=== PATIENT | female | born 1950 | race Caucasian/White ===

== ENCOUNTER → 2018-01-05 07:05 | Outpatient (CLI) | payer MEDICARE, OTHER, SELFPAY ==
[2018-01-05 08:13] LABS: Aspartate Amino Transferase 27 U/L (15-37); HDL Cholesterol 58 mg/dL (29-89)
[2018-01-05 08:28] LABS: Albumin Level 3.8 gm/dL (3.4-5.0); Chol/HDL Ratio 3.4 (1-3.5); Cholesterol 197 mg/dL (140-200); Free T4 (Free Thyroxine) 1.07 ng/dl (0.76-1.46); Glucose 107 mg/dL (74-106); LDL Cholesterol 127 mg/dL (0-130); Triglycerides 62 mg/dL (30-200); VLDL Cholesterol 12 mg/dL (0-40)
[2018-01-05 08:50] LABS: Alanine Aminotransferase 41 U/L (12-78); Albumin/Globulin Ratio 1.3 (1.1-1.8); Alkaline Phosphatase 92 U/L (46-116); Anion Gap 13.4 mEq/L (5-15); Bilirubin,Total 0.2 mg/dL (0.2-1.0); Blood Urea Nitrogen 19 mg/dL (7-18); Calcium 9.8 mg/dL (8.5-10.1); Carbon Dioxide 26 mmol/L (21.0-32.0); Chloride 104 mmol/L (98-107); Creatinine,Serum 0.74 mg/dL (0.55-1.02); Estimated Glomerular Filt Rate 78 ml/min (>60); GFR (African American) 94 ML/MIN (>60); Globulin 2.9 gm/dl (1.3-3.2); Potassium 4.4 mmoL/L (3.5-5.1); Sodium 139 mmol/L (136-145); Thyroid Stimulating Hormone 0.76 uIU/ml (0.358-3.740); Total Protein,Serum 6.7 gm/dL (6.4-8.2)
== END ==
PROVIDERS: Visit Provider Family Medicine
DX: E03.9 Hypothyroidism, unspecified (principal); E78.00 Pure hypercholesterolemia, unspecified
CPT/HCPCS: 36415; 80053; 80061; 84439; 84443

== ENCOUNTER → 2019-08-04 12:35 | Outpatient (CLI) | payer MEDICARE, OTHER, SELFPAY ==
--- NOTE | 2019-08-04 12:41 | MR_ITS ---
PROCEDURE: MR KNEE LT WO CON CLINICAL INDICATION: LEFT KNEE PAIN, POSITIVE AMY SIGN OF LEFT KNEE Medial knee pain COMPARISON: No exams were available for comparison TECHNIQUE: Routine multiplanar multi echo sequences are performed without gadolinium enhancement. Some the FINDINGS: The cruciate ligaments appear intact. The fibers of the ACL are fairly sparse and could be due to an old injury. The lateral collateral ligament complex is unremarkable. There is some mild edema along both medial and lateral aspect of the medial collateral ligament suggesting a sprain of MCL. There is a horizontal tear of the posterior horn of the medial meniscus. The lateral meniscus has an unremarkable appearance. There is a small area of increased T2 signal along the posterior surface of the patella and along the lateral surface of the patella with thinning of the patellar cartilage consistent with chondromalacia patella. No significant effusion. No bone bruise or fracture. There is a small subarticular cyst along the proximal tibia posteriorly. A small cystic areas present between the proximal. This measures 6 approximately 1 cm. IMPRESSION: 1. Nondisplaced horizontal tear posterior horn medial meniscus. 2. 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 Mild amount of edema along the medial and lateral aspect of the medial collateral ligament suggesting sprain. Dictated by: Delon Aguilar MD 08/05/2019 09:59 Electronically signed by Delon Aguilar MD in [place] 08/05/2019 09:59
== END ==
PROVIDERS: PCP Family Medicine; Visit Provider Family Medicine
DX: M25.562 Pain in left knee (principal); S83.207A Unspecified tear of unspecified meniscus, current injury, left knee, initial encounter
CPT/HCPCS: 73721

== ENCOUNTER → 2019-08-14 12:49 | Outpatient (CLI) | payer MEDICARE, OTHER, SELFPAY ==
--- NOTE | 2019-08-14 13:01 | XR_ITS ---
PROCEDURE: XR KNEE LT 4V CLINICAL INDICATION: left knee pain COMPARISON: No exams were available for comparison FINDINGS: No fracture or dislocation. No lytic or blastic change. There is normal mineralization. There are mild osteoarthritic changes the patellofemoral joint and medial compartment and minimal chondrocalcinosis medially. Other findings:None. IMPRESSION: Mild osteoarthritic change at the medial compartment and patellofemoral joint Dictated by: Delon Aguilar MD 08/14/2019 14:25 Electronically signed by Delon Aguilar MD in [place] 08/14/2019 14:25
== END ==
PROVIDERS: PCP Family Medicine; Visit Provider Orthopaedic Surgery
DX: M25.562 Pain in left knee (principal)
CPT/HCPCS: 73564

== ENCOUNTER → 2019-08-22 12:28 | Outpatient (CLI) | payer MEDICARE, OTHER, SELFPAY ==
[2019-08-22 13:02] LABS: Basophils % 0.4 % (0.1-2.0); Eosinophils # 0.1 K/mm3 (0.0-0.4); Eosinophils % 1.2 % (0.1-12.0); Hematocrit 40.2 % (37.0-47.0); Hemoglobin 13.5 g/dL (12.2-16.2); Lymphocytes # 1.6 K/mm3 (0.7-4.5); Lymphocytes % 19.3 % (10-50); Mean Corpuscular HGB Conc 33.5 g/dL (31.8-35.4); Mean Corpuscular Hemoglobin 31.4 pg (27.0-31.2); Mean Corpuscular Volume 93.7 fl (81-99); Mean Platelet Volume 7.6 fl (7.4-10.4); Monocytes # 0.4 K/mm3 (0.1-1.0); Monocytes % 4.3 % (1.7-9.3); Neutrophils # 6.3 K/mm3 (1.8-7.8); Neutrophils % 74.8 % (37.0-80.0); Platelet Count 328 K/mm3 (142-424); Red Blood Count 4.29 M/mm3 (4.20-5.40); Red Cell Distribution Width 13.1 % (11.5-17.5); White Blood Count 8.4 K/mm3 (4.8-10.8)
[2019-08-22 13:49] LABS: Alanine Aminotransferase 49 U/L (12-78); Albumin Level 4.1 gm/dL (3.4-5.0); Albumin/Globulin Ratio 1.6 (1.1-1.8); Alkaline Phosphatase 94 U/L (46-116); Aspartate Amino Transferase 33 U/L (15-37); Bilirubin,Total 0.3 mg/dL (0.2-1.0); Blood Urea Nitrogen 20 mg/dL (7-18); Calcium 9.6 mg/dL (8.5-10.1); Carbon Dioxide 27 mmol/L (21.0-32.0); Chloride 104 mmol/L (98-107); Estimated Glomerular Filt Rate 71 ml/min (>60); GFR (African American) 86 ML/MIN (>60); Globulin 2.6 gm/dl (1.3-3.2); Glucose 106 mg/dL (74-106); Sodium 143 mmol/L (136-145); Total Protein,Serum 6.7 gm/dL (6.4-8.2)
== END ==
PROVIDERS: Visit Provider Orthopaedic Surgery
DX: Z01.818 Encounter for other preprocedural examination (principal); M17.12 Unilateral primary osteoarthritis, left knee
CPT/HCPCS: 36415; 80053; 85025

== ENCOUNTER → 2019-08-23 07:09 | Outpatient (CLI) | payer MEDICARE, OTHER, SELFPAY ==
--- NOTE | 2019-08-23 07:28 | XR_ITS ---
PROCEDURE: XR CHEST 2V CLINICAL HISTORY: COUGH COMPARISON: No exams were available for comparison FINDINGS: The cardiomediastinal silhouette and pulmonary vascularity are within normal limits. The lungs are clear without infiltrates, suspicious nodules, or pleural effusions. No acute bony abnormalities. IMPRESSION: No acute findings. Dictated by: Delon Aguilar MD 08/23/2019 08:03 Electronically signed by Delon Aguilar MD in [facility] 08/23/2019 08:03
--- NOTE | 2019-08-23 07:49 | ECG_ITS ---
APPROVED REPORT Exam: Resting ECG HR:56 bpm ECG Measurements Heart Rate 56 AXES TN 150 P 49 QRSd 80 QRS 29 QT 400 T 39 QTc 386 <Conclusion> Sinus bradycardia Low voltage QRS Late r wave progression Abnormal ECG Electronically signed by : Raúl Gastelum, 08/24/2019 15:31:50
== END ==
PROVIDERS: PCP Family Medicine; Visit Provider Orthopaedic Surgery
DX: Z01.818 Encounter for other preprocedural examination (principal); M17.12 Unilateral primary osteoarthritis, left knee
CPT/HCPCS: 71046; 93005

== ENCOUNTER → 2020-02-07 14:52 | Outpatient (CLI) | payer MEDICARE, OTHER, SELFPAY ==
[2020-02-07 15:24] LABS: Basophils % 0.5 % (0.1-2.0); Eosinophils # 0.1 K/mm3 (0.0-0.4); Eosinophils % 1.9 % (0.1-12.0); Hemoglobin 14.3 g/dL (12.2-16.2); Lymphocytes # 1.4 K/mm3 (0.7-4.5); Lymphocytes % 19.8 % (10-50); Mean Corpuscular HGB Conc 34.2 g/dL (31.8-35.4); Mean Corpuscular Hemoglobin 32.4 pg (27.0-31.2); Mean Corpuscular Volume 94.9 fl (81-99); Mean Platelet Volume 7.8 fl (7.4-10.4); Monocytes # 0.4 K/mm3 (0.1-1.0); Neutrophils # 5.1 K/mm3 (1.8-7.8); Neutrophils % 72.6 % (37.0-80.0); Platelet Count 320 K/mm3 (142-424); Red Blood Count 4.42 M/mm3 (4.20-5.40); Red Cell Distribution Width 13.1 % (11.5-17.5)
[2020-02-09 14:47] LABS: Covid-19 Nasal PCR Sendout Lex Not Detected
== END ==
PROVIDERS: PCP Family Medicine; Visit Provider Family Medicine
DX: Z03.818 Encounter for observation for suspected exposure to other biological agents ruled out (principal)
CPT/HCPCS: 36415; 85025; U0004

== ENCOUNTER → 2020-02-19 07:30 | Outpatient (CLI) | payer MEDICARE, OTHER, SELFPAY ==
[2020-02-19 08:39] LABS: Basophils % 0.4 % (0.1-2.0); Eosinophils # 0.1 K/mm3 (0.0-0.4); Eosinophils % 2.5 % (0.1-12.0); Hematocrit 41.5 % (37.0-47.0); Lymphocytes # 1.3 K/mm3 (0.7-4.5); Mean Corpuscular HGB Conc 33.8 g/dL (31.8-35.4); Mean Corpuscular Hemoglobin 31.6 pg (27.0-31.2); Mean Corpuscular Volume 93.5 fl (81-99); Mean Platelet Volume 7.3 fl (7.4-10.4); Monocytes # 0.3 K/mm3 (0.1-1.0); Neutrophils # 3.3 K/mm3 (1.8-7.8); Neutrophils % 66.1 % (37.0-80.0); Platelet Count 302 K/mm3 (142-424); Red Blood Count 4.44 M/mm3 (4.20-5.40); Red Cell Distribution Width 12.9 % (11.5-17.5)
[2020-02-19 09:43] LABS: Chloride 102 mmol/L (98-107); Potassium 4.7 mmoL/L (3.5-5.1); Sodium 139 mmol/L (136-145)
[2020-02-19 09:45] LABS: Alanine Aminotransferase 37 U/L (12-78); Aspartate Amino Transferase 37 U/L (14-36); Blood Urea Nitrogen 16 mg/dl (7-17); Estimated Glomerular Filt Rate 99 ml/min (>60); GFR (African American) 120 ML/MIN (>60)
[2020-02-19 09:46] LABS: Albumin Level 4.2 g/dl (3.5-5.0); Albumin/Globulin Ratio 1.8 (1.1-1.8); Alkaline Phosphatase 75 U/L (38-126); Anion Gap 12.7 mEq/L (5-15); Bilirubin,Total 0.3 mg/dl (0.2-1.3); Calcium 10.2 mg/dl (8.4-10.2); Carbon Dioxide 29 mmol/L (22.0-30.0); Chol/HDL Ratio 3.8 (1-3.5); Cholesterol 199 mg/dl (140-200); Globulin 2.3 g/dL (1.3-3.2); Glucose 98 mg/dl (74-100); HDL Cholesterol 52 mg/dl (40-60); Total Protein,Serum 6.5 g/dl (6.3-8.2); Triglycerides 129 mg/dl (30-150); VLDL Cholesterol 26 mg/dL (0-40)
[2020-02-19 09:52] LABS: C-Reactive Protein 0.8 mg/L (0-4)
[2020-02-19 09:53] LABS: Erythrocyte Sedimentation Rate 16 mm/hr (0-30)
[2020-02-19 10:03] LABS: Free T4 (Free Thyroxine) 0.92 ng/dl (0.78-2.19)
[2020-02-19 10:17] LABS: Thyroid Stimulating Hormone 2.23 uIU/mL (0.465-4.68)
--- NOTE | 2020-02-19 10:18 | MM_ITS ---
PROCEDURE: MM DIG SCREENING MAMM BI W/CAD Digital Breast Tomosynthesis Included CLINICAL INDICATION: SCREENING There is no personal or family history of breast cancer. The patient reports previous breast biopsy does but does not state which breast COMPARISON: MG DMDXUR DIG MAMM-DX UNI-RT from 04/10/2013 MG DMSB DIG MAMM-SCREEN AARON from 06/05/2014 MG DMSB DIG MAMM-SCREEN AARON from 07/22/2015 TECHNIQUE: Standard CC and MLO images and 3D Tomosynthesis was obtained. R2 CAD reviewed. FINDINGS: Prominent somewhat heterogenic fibroglandular densities are seen in the central portions of both breast and the findings of bilateral and symmetrical. There is a benign-appearing calcification left breast. There is no suspicious lesion and no suspicious microcalcifications. IMPRESSION: Stable dense and heterogenic breast parenchyma with no suspicious lesions seen BI-RAD Category: 2 Benign Finding(s) FOLLOW-UP: 1YR 1 Year Follow-up (A letter has been sent to the patient regarding results of the study.) Dictated Dr. Dameon Rivera MD 02/23/2020 10:29 Dr. Dameon Martinez MD in [place] 02/23/2020 10:29
[2020-02-20 09:17] LABS: RA Latex Turbid. <10.0 IU/mL (0.0-13.9); Vitamin B12 996 pg/mL (232-1245)
[2020-02-20 11:15] LABS: Antinuclear Antibodies, IFA Negative (.)
== END ==
PROVIDERS: PCP Family Medicine; Visit Provider Family Medicine
DX: Z12.31 Encounter for screening mammogram for malignant neoplasm of breast (principal); M25.562 Pain in left knee; E78.00 Pure hypercholesterolemia, unspecified; E03.9 Hypothyroidism, unspecified; M79.672 Pain in left foot; M79.671 Pain in right foot
CPT/HCPCS: 36415; 77063; 77067; 80053; 80061; 82607; 84439; 84443; 85025; 85651; 86038; 86140; 86431

== ENCOUNTER → 2020-12-24 08:50 | Outpatient (POV) | payer MEDICARE, OTHER, SELFPAY | PROVIDERS: Visit Provider Dermatology | DX: Z00.00 Encounter for general adult medical examination without abnormal findings (principal) ==

== ENCOUNTER 2021-02-04 09:00 | Outpatient (RCR) | payer MEDICARE, OTHER, SELFPAY ==
--- NOTE | 2020-12-17 10:16 | HMH.PTOPEV ---
PT Outpatient Evaluation Rehab PT Outpatient Evaluation Start: 12/17/20 09:05 Freq: Status: Active Protocol: Document 12/17/20 10:00 ABRIL (Rec: 12/17/20 10:16 ABRIL [id number]) Electronically Signed By Delvin Rey, PT 12/17/20 10:00 Outpatient Therapy Subjective History Subjective History Pt is 70 yowf who presents with c/o difficulty ambulating well due to residual L knee stiffness after partial medial meniscectomy in 08/2020. She reports the pandemic restrictions limited her ability to perform rehab after her surgery. She reports he knee feels fine, but is stiff, especially during gait. She reports only mild discomfort in the medial R knee, worse at night. Chief Complaint Pain,Stiff Symptom Type Ache Symptoms Relieved By Rest/Positioning Symptoms Aggravated By Walking Prior Functional Limitations None Current Functional Limitations Recreation Activity,Walking Symptom Description Intermittent,Activity Dependent Level of pain today (0-10) 0 Pain scale - at its worst (0-10) 2 Hip/Knee Eval Gait Observation General Gait Pattern Observation Antalgic Gait,Decrease Stride Lngth (L) Palpation Tenderness left Knee Palpation Finding Tenderness Knee Palpation Overall Comment L pes anserine Hip Palpation Findings Tenderness MMT Hip Flexion Strength Grade 4 Good Hip Abduction Strength Grade 4 Good Hip Adduction Strength Grade 4 Good Hip Extension Strength Grade 4 Good Knee Extension Strength Grade 5 Normal Knee Flexion Strength Grade 5 Normal ROM Knee Extension Active Range of Motion ( -4 degrees) Knee Flexion Active Range of Motion ( 4-125 degrees) Special Tests Hip Bowstring (Cram) Test Negative Left,Negative Right Hip Paco Test Negative Left,Negative Right Sciatic Nerve Tension Test Negative Left,Negative Right Knee Apley Compression Test Negative Left,Negative Right Knee Anterior Drawer Test Negative Left,Negative Right Patton 90/90 Test (PCL) Negative Left,Negative Right Knee Anterior Nancy Test Negative Left,Negative Right Knee Valgus Stress Test Negative Left,Negative Right Knee Varus Stress Test Negative Left,Negative Right Outpatient Therapy Assessment Impairments Problems/Impairmments Palpa
--- NOTE | 2021-01-14 09:50 | HMH.RHREAS ---
Rehab Reassessment Rehab OP Re-assessment Start: 01/14/21 09:34 Freq: Status: Active Protocol: Document 01/14/21 09:44 ABRIL (Rec: 01/14/21 09:49 ABRIL [id number]) Electronically Signed By Delvin Rey, PT 01/14/21 09:44 Rehab Re-assessment Subjective Subjective Pt reports less pain overall, 1/10 in L knee. SHe also reports much less tenderness to palpation. Objective Objective Notes L KNEE AROM: 2-127 deg. MMT to R LE: Grossly 4+/5 throughout. Assessment Progress Assessment Progressing as Expected Assessment Notes Improving ROM, Gait pattern, and pain. Strength needs to increase, but has also improved. Patient goals met STG: all Goals Not Met LTG: all Revised Goals none Plan Plan Continue per initial POC. Frequency of Therapy 2 x/wk Duration of therapy 8 wks Time and Billing Re-Eval Time 15 Re-Eval Billing Units 0 PHYSICIAN CERTIFICATION: I certify the specified therapy services for Chhaya Millan are required, authorized, and reviewed every 30 days.
== END 2021-02-04 09:05 | disposition home or self-care (01) ==
LOC: PT 09:00
PROVIDERS: PCP Family Medicine; Visit Provider Physician Assistant
DX: M25.562 Pain in left knee (principal); Z98.890 Other specified postprocedural states
CPT/HCPCS: 97014; 97033; 97110; 97140; 97163; 97164; G0283

== ENCOUNTER → 2021-03-04 08:10 | Outpatient (CLI) | payer MEDICARE, OTHER, SELFPAY ==
--- NOTE | 2021-03-04 08:18 | MM_ITS ---
PROCEDURE: MM DIG SCREENING MAMM BI W/CAD Digital Breast Tomosynthesis Included CLINICAL INDICATION: SCREENING COMPARISON: MG DMSB DIG MAMM-SCREEN AARON from 06/05/2014 MG DMSB DIG MAMM-SCREEN AARON from 07/22/2015 MG MM DIG SCREENING MAMM BI W/CAD from 02/19/2020 TECHNIQUE: Standard CC and MLO images and 3D Tomosynthesis was obtained. R2 CAD reviewed. FINDINGS: Heterogeneously dense fibroglandular tissue which decreases the sensitivity of mammography. No suspicious appearing mass, malignant-appearing microcalcification, architectural distortion, or skin thickening. No change with no evidence of malignancy. Benign appearing calcification outer aspect left breast. IMPRESSION: No change with no evidence of malignancy BI-RAD Category: 2 Benign Finding FOLLOW-UP: 1 YR 1 Year Follow-up (A letter has been sent to the patient regarding results of the study.) Dictated by: Delon Aguilar MD 03/10/2021 10:41 Delon Aguilar MD in [place] 03/10/2021 10:41
--- NOTE | 2021-03-04 08:19 | XR_ITS ---
PROCEDURE: XR DEXA AXIAL SKELETON CLINICAL HISTORY: POST MENOPAUSAL COMPARISON: No exams were available for comparison FINDINGS: The right hip BMD is 0.712 with a T-score of -1.2. The left hip BMD is 0.763 with a T-score of -0.8. The lumbar spine BMD is 1.053 with a T-score of 0.1. IMPRESSION: This patient is considered osteopenic according to the World Health Organization criteria. Bone density is between 10 and 25 percent below young normal. Fracture risk is moderate. Treatment is advised. Based on these results a follow-up exam is recommended in 2 year. Dictated by: Delon Aguilar MD 03/04/2021 17:15 Delon Aguilar MD in [place] 03/04/2021 17:15
== END ==
PROVIDERS: PCP Family Medicine; Visit Provider Physician Assistant
DX: Z12.31 Encounter for screening mammogram for malignant neoplasm of breast (principal); Z78.0 Asymptomatic menopausal state
CPT/HCPCS: 77063; 77067; 77080

== ENCOUNTER → 2021-04-03 10:19 | Outpatient (CLI) | payer MEDICARE, OTHER, SELFPAY ==
--- NOTE | 2021-04-03 10:23 | XR_ITS ---
PROCEDURE: XR LUMBAR SPINE MIN 4V CLINICAL INDICATION: ACUTE RT SIDED LOW BACK PAIN W/O SCIATICA COMPARISON: No exams were available for comparison FINDINGS: Hypoplastic rib is present at T12. Degenerative disc disease is noted at L1-L2 L2-L3 and L3-L4. There is 6 mm anterolisthesis of L4 on L5. Degenerative disc disease also noted at L5-S1. There are small anterior osteophytes in the lumbar spine. No acute fracture or dislocation. No lytic or blastic change. Facet hypertrophic/arthritic changes are noted at L4-5. Mild degenerative changes of the SI joints. There is a mild amount of retained colonic feces. Calcifications are present in the left upper quadrant possibly due to splenic granulomas Other findings:None. IMPRESSION: Degenerative changes as described above No acute fracture Dictated by: Delon Aguilar MD 04/03/2021 15:05 Delon Aguilar MD in [place] 04/03/2021 15:05
== END ==
PROVIDERS: PCP Family Medicine; Visit Provider Physician Assistant
DX: M54.5 Low back pain (principal)
CPT/HCPCS: 72110

== ENCOUNTER 2021-05-20 10:00 | Outpatient (RCR) | payer MEDICARE, OTHER, SELFPAY ==
--- NOTE | 2021-04-24 11:35 | HMH.PTOPEV ---
PT Outpatient Evaluation Rehab PT Outpatient Evaluation Start: 04/24/21 10:48 Freq: Status: Active Protocol: Document 04/24/21 11:21 URIEL (Rec: 04/24/21 11:35 URIEL [id number]) Electronically Signed By Marcelino Ferraro, PT 04/24/21 11:21 Outpatient Therapy Subjective History Subjective History Patient is a 70 year old female presenting to outpatient PT with reports of chronic LBP without radicular symptoms. Most recent imaging indicates L 1/2 2/3 3/4 and L5/S1. Imaging also indicates L4/5 6mm anterolisthesis. Symptoms of isidious onset. Comorbidities include L meniscectomy, HL, hypothyroidism and osteopenia. When I walk, my back just feels tired. Chief Complaint Pain,Stiff Symptom Type Other Symptoms Relieved By Rest/Positioning Symptoms Aggravated By Walking,Lifting Prior Functional Limitations None Current Functional Limitations Lifting,Housework,Walking Symptom Description Intermittent Level of pain today (0-10) 0 Pain scale - at its best (0-10) 0 Pain scale - at its worst (0-10) 8 Lumbopelvic Eval Posture Thoracic Spine Posture Standing Position Increased Kyphosis Lumbar Spine Posture Standing Position Increased Lordosis Assistive device Assistive Devices None / NA Palapation tenderness bilateral lumbar spinal tenderness Yes: L3-S1 3/4 paraspinal tenderness Yes: buttock tenderness Yes: Accessory Movement L3 bilateral L4 bilateral L5 bilateral S1 bilateral Range of Motion Lumbar Spine Active Flexion Range of 85 Motion (degrees) Lumbar Spine Active Extension Range of 15 Motion (degrees) Left Lumbar Spine Lateral Flexion Active 25 Range of Motion (degrees) Right Lumbar Spine Lateral Flexion 18 Active Range of Motion (degrees) Lumbar Spine ROM Limitations Soft Tissue Tightness,Bony Restriction Manual Muscle Test Bilateral Knee Extension Strength Grade 5 Normal Knee Flexion Strength Grade 5 Normal Hip Flexion Strength Grade 5 Normal Extensor Hallucis Longus Strength Grade 5 Normal Ankle Dorsiflexion Strength Grade 5 Normal Gastronemius/Soleus Strength Grade 5 Normal DTR Rt Patellar 2+ Lt Patellar 2+
== END 2021-05-20 10:05 | disposition home or self-care (01) ==
LOC: PT 10:00
PROVIDERS: PCP Family Medicine; Visit Provider Physician Assistant
DX: M54.50 Low back pain, unspecified (principal)
CPT/HCPCS: 97110; 97163

== ENCOUNTER → 2021-07-21 08:50 | Outpatient (CLI) | payer MEDICARE, OTHER, SELFPAY | PROVIDERS: PCP Family Medicine; Visit Provider Nurse Practitioner | DX: Z20.822 Contact with and (suspected) exposure to COVID-19 (principal) | CPT/HCPCS: C9803; U0003; U0005 ==

== ENCOUNTER → 2021-07-31 07:28 | Outpatient (CLI) | payer MEDICARE, OTHER, SELFPAY ==
[2021-07-31 09:19] LABS: Alanine Aminotransferase 40 U/L (12-78); Albumin Level 4.3 g/dl (3.5-5.0); Albumin/Globulin Ratio 2.2 (1.1-1.8); Alkaline Phosphatase 58 U/L (38-126); Anion Gap 10.4 mEq/L (5-15); Aspartate Amino Transferase 40 U/L (14-36); Bilirubin,Total 0.4 mg/dl (0.2-1.3); Blood Urea Nitrogen 19 mg/dl (7-17); Calcium 10.1 mg/dl (8.4-10.2); Carbon Dioxide 30 mmol/L (22.0-30.0); Chloride 101 mmol/L (98-107); Cholesterol 190 mg/dl (140-200); Estimated Glomerular Filt Rate 82 ml/min (>60); GFR (African American) 100 ML/MIN (>60); Glucose 92 mg/dl (74-100); Potassium 4.4 mmoL/L (3.5-5.1); Sodium 137 mmol/L (136-145); Total Protein,Serum 6.3 g/dl (6.3-8.2); Triglycerides 87 mg/dl (30-150); VLDL Cholesterol 17 mg/dL (0-40)
[2021-07-31 09:36] LABS: 25-OH Vitamin D, Total 46.8 ng/mL (30-100)
[2021-07-31 09:50] LABS: Thyroid Stimulating Hormone 1.55 uIU/mL (0.465-4.68)
[2021-07-31 10:28] LABS: HDL Cholesterol 47 mg/dl (40-60)
== END ==
PROVIDERS: Visit Provider Family Medicine
DX: E78.00 Pure hypercholesterolemia, unspecified (principal); E03.9 Hypothyroidism, unspecified; M85.89 Other specified disorders of bone density and structure, multiple sites
CPT/HCPCS: 36415; 80053; 80061; 82306; 84439; 84443

== ENCOUNTER → 2021-08-13 08:55 | Outpatient (CLI) | payer MEDICARE, OTHER, SELFPAY | PROVIDERS: PCP Family Medicine; Visit Provider Nurse Practitioner | DX: U07.1 COVID-19 (principal) | CPT/HCPCS: C9803; U0003; U0005 ==

== ENCOUNTER 2021-08-26 10:22 | Outpatient (RCR) | payer MEDICARE, OTHER, SELFPAY | END 2021-08-26 11:47 | disposition home or self-care (01) | LOC: PT 10:22 | PROVIDERS: Visit Provider Physician Assistant | DX: M54.50 Low back pain, unspecified (principal) | CPT/HCPCS: 97760 ==

== ENCOUNTER → 2021-11-10 07:11 | Outpatient (CLI) | payer MEDICARE, OTHER, SELFPAY ==
--- NOTE | 2021-11-10 07:29 | MR_ITS ---
FINAL REPORT CLINICAL HISTORY: DDD, LUMBAR. lbp. unable to walk up straight. pain when walking. no injury or trauma. FINDINGS: Multiplanar MR imaging of the lumbar spine was performed without contrast. On the sagittal T2-weighted images, decreased signal is seen throughout. There is disc space narrowing at L1-2, L2-3 and L5-S1. There is minimal spondylolisthesis of L4 on L5. There is no evidence of fracture. No bony mass is identified. The conus is seen at approximately the L1 level and has an unremarkable appearance. L1-2: Mild diffuse disc bulge with [id number] bilateral neural foraminal narrowing. L2-3: Mild diffuse disc bulge with [id number] bilateral neural foraminal narrowing. L3-4: Mild diffuse disc bulge with mild to moderate bilateral neural foraminal narrowing. L4-5: Mild disc bulge eccentric by spondylolisthesis. There is asymmetric facet hypertrophy, left greater than right. There is [id number] bilateral neural foraminal narrowing. L5-S1: Mild bilateral neural foraminal narrowing. IMPRESSION: Multilevel degenerative disc disease with minimal spondylolisthesis of L4 on L5 and mild to moderate neural foraminal narrowing. Reviewed, Interpreted and Dictated by Flako New MD Transcribed by Nathaly Thurman Authenticated by Flako New MD on 11/10/2021 09:51:56 AM [facility]
== END ==
PROVIDERS: PCP Family Medicine; Visit Provider Nurse Practitioner Family
DX: M51.36 Other intervertebral disc degeneration, lumbar region (principal)
CPT/HCPCS: 72148; 76376

== ENCOUNTER 2022-06-26 08:38 | Emergency (ER) | payer MEDICARE, OTHER, SELFPAY ==
[2022-06-26 09:07] LABS: UTC Strep Screen (Rapid) Negative (Negative)
[2022-06-26 09:08] VITALS: BP 140/89; PULSE 82; RESP 16; TEMP 36.9; O2SAT 99; BMI 24.7
--- NOTE | 2022-06-26 09:09 | EXP.UTC ---
Discharge Plan Disposition Patient Disposition: Home, Self-Care Condition: Good Prescriptions Prescriptions: New prednisone [prednisone] 20 mg tablet 20 mg PO DAILY 4 Days Qty: 4 0RF amoxicillin [amoxicillin] 500 mg tablet 500 mg PO TID 10 Days Qty: 30 0RF No Action levothyroxine 13 mcg capsule 13 mcg PO DAILY atorvastatin 10 mg tablet 10 mg PO DAILY aspirin 81 MG tablet,delayed release (DR/EC) 81 mg PO DAILY Referrals Follow up/Referrals: Roshan Mcgee MD [Primary Care Provider] - See instructions Activity Restrictions/Add. Instructions Additional Instructions/Restrictions: Drink plenty of fluids. Take tylenol or ibuprofen for pain or fever. Take the medications as directed. Follow up with your regular doctor. GO TO THE ER FOR ANY WORSENING SYMPTOMS Clinical Impressions Clinical Impression: Pharyngitis Instructions Patient Instructions: DI for Pharyngitis/Tonsillopharyngitis -- Adult Discharge ED Provider: Kenneth Perez [facility] HPI General Stated complaint: sore throat Time Seen by Provider: 06/26/22 09:08 History of Present Illness Provider Complaint: She states that for the past 4 days she has had a very sore throat. She has been exposed to strep throat by her grand daughter having it and being around her. She denies any fever but she has had chills. She denies significant cough and congestion. Related Data Home Medications Medication Instructions Recorded Confirmed atorvastatin 10 mg tablet 10 mg PO DAILY Cholesterol 08/15/19 09/12/19 levothyroxine 13 mcg capsule 13 mcg PO DAILY thyroid 08/15/19 09/12/19 aspirin 81 mg tablet,delayed 81 mg PO DAILY Supplement 08/28/19 09/12/19 release Previous Rx's Medication Instructions Recorded amoxicillin 500 mg tablet 500 mg PO TID 10 days #30 tabs 06/26/22 prednisone 20 mg tablet 20 mg PO DAILY 4 days #4 tabs 06/26/22 Allergies Allergy/AdvReac Type Severity Reaction Status Date / Time No Known Allergies Allergy Verified 06/26/22 09:16 [facility] Disclaimer: The information contained in this section may have been updated after the patient was seen, as this information can be updated by other users. Social History Smoking Status: Never smoker second hand exposure: No alcohol intake: never substance use type: denies use current occupational status: retired Travel in the last 8 weeks: None household members: spouse housing: house current occupational exposures/hazards: No caffeine: Yes ROS Obtained: Yes All systems reviewed & no additional complaints except as documented Constitutional Constitutional: Reports chills and Denies fever(s) Eyes Eyes: Denies eye discharge ENT Ears, Nose, Mouth, and Throat: Reports as per HPI Cardiovascular Cardiovascular: Denies chest pain Respiratory Respiratory: Denies chest congestion and Reports cough Gastrointestinal Gastrointestingal: Reports nausea; Denies abdominal pain, constipation, cramping, diarrhea or vomiting Musculoskeletal Musculoskeletal: Denies arthralgias Integumentary/Breasts Skin/Breast: Denies rash Neurologic Neurologic: Denies paresthesias Physical Exam General General appearance: alert and in no apparent distress Head Head exam: atraumatic, normocephalic and normal inspection Eye Eye exam: Present normal appearance, PERRL and EOMI ENT ENT exam: Present mucous membranes moist and normal external ear exam Expanded ENT Exam TM/Canal exam: Bilateral TM: erythema and bulging Nose exam: Absent sinus tenderness Mouth exam: Present normal external inspection; Absent drooling Teeth exam: Present normal inspection Throat exam: Present tonsillar erythema, tonsillomegaly and tonsillar exudate Neck Neck exam: Present normal inspection, full ROM and trachea midline; Absent tenderness, meningismus or lymphadenopathy Chest Chest inspection: Present normal inspecti
[2022-06-26 10:07] VITALS: BP 140/89; PULSE 82; RESP 16; TEMP 36.9
== END 2022-06-26 10:08 | disposition home or self-care (01) ==
PROVIDERS: Nurse Practitioner Family; Emergency Provider Emergency Medicine; PCP Family Medicine
DX: J02.9 Acute pharyngitis, unspecified (principal)
CPT/HCPCS: 87880; 99212; C9803; G0463; U0003; U0005

== ENCOUNTER → 2022-09-10 08:03 | Outpatient (CLI) | payer MEDICARE, OTHER, SELFPAY ==
[2022-09-10 09:14] LABS: Alanine Aminotransferase 41 U/L (12-78); Albumin Level 4.4 g/dl (3.5-5.0); Albumin/Globulin Ratio 1.8 (1.1-1.8); Alkaline Phosphatase 86 U/L (38-126); Anion Gap 5.5 mEq/L (5-15); Aspartate Amino Transferase 38 U/L (14-36); Bilirubin,Total 0.6 mg/dl (0.2-1.3); Blood Urea Nitrogen 21 mg/dl (7-17); Calcium 9.7 mg/dl (8.4-10.2); Carbon Dioxide 28 mmol/L (22.0-30.0); Chloride 106 mmol/L (98-107); Chol/HDL Ratio 4.6 (1-3.5); Cholesterol 223 mg/dl (140-200); Estimated Glomerular Filt Rate 82 ml/min (>60); GFR (African American) 100 ML/MIN (>60); Globulin 2.4 g/dL (1.3-3.2); Glucose 100 mg/dl (74-100); HDL Cholesterol 49 mg/dl (40-60); Potassium 4.5 mmoL/L (3.5-5.1); Sodium 135 mmol/L (136-145); Total Protein,Serum 6.8 g/dl (6.3-8.2); Triglycerides 157 mg/dl (30-150); VLDL Cholesterol 31 mg/dL (0-40)
[2022-09-10 09:26] LABS: Direct LDL Cholesterol 121.29 mg/dL (100-129)
[2022-09-10 09:31] LABS: Free T4 (Free Thyroxine) 0.86 ng/dl (0.78-2.19)
[2022-09-10 09:32] LABS: 25-OH Vitamin D, Total 43.2 ng/mL (30-100)
[2022-09-10 09:45] LABS: Thyroid Stimulating Hormone 1.54 uIU/mL (0.465-4.68)
== END ==
PROVIDERS: PCP Family Medicine; Visit Provider Family Medicine
DX: E78.00 Pure hypercholesterolemia, unspecified (principal); E55.9 Vitamin D deficiency, unspecified; E03.9 Hypothyroidism, unspecified
CPT/HCPCS: 36415; 80053; 80061; 82306; 84439; 84443

== ENCOUNTER → 2022-09-18 10:30 | Outpatient (CLI) | payer MEDICARE, OTHER, SELFPAY ==
--- NOTE | 2022-09-18 10:35 | FL_ITS ---
FINAL REPORT CLINICAL HISTORY: ESOPHAGEAL DYSPHASIA ft: 1:32 FINDINGS: UPPER GI EXAM HISTORY: Dysphagia. PROCEDURE: The patient ingested barium. Effervescent crystals were also administered. Spot and overhead films were obtained. Fluoroscopy time 1 minute 32 seconds. 15 radiographs were obtained. FINDINGS: No esophageal stricture is identified. A 13 mm barium tablet passes through the esophagus and into the stomach without delay. There is a small sliding type hiatal hernia with a prominent esophageal ring. No gastroesophageal reflux was demonstrated during the exam. There was esophageal dysmotility demonstrated during the exam. Rugal fold pattern of the stomach is normal. The stomach empties appropriately. The duodenum is unremarkable. IMPRESSION: Small sliding-type hiatal hernia. Esophageal dysmotility. Films reviewed , interpreted and dictated by Dr. Benitez Transcribed by Nato Morrow PA-C. Reviewed, Interpreted and Dictated by Blanca Benitez MD Transcribed by FLORENCIO Ferreira Authenticated and [facility]
== END ==
PROVIDERS: PCP Family Medicine; Visit Provider Family Medicine
DX: R13.19 Other dysphagia (principal)
CPT/HCPCS: 74246

== ENCOUNTER 2022-10-21 09:00 | Outpatient (RCR) | payer MEDICARE, OTHER, SELFPAY | END 2022-10-21 09:05 | disposition home or self-care (01) | LOC: PT 09:00 | PROVIDERS: PCP Family Medicine; Visit Provider Physician Assistant | DX: M54.50 Low back pain, unspecified (principal) | CPT/HCPCS: 97110; 97163; 97530 ==

== ENCOUNTER → 2023-03-16 16:05 | Outpatient (CLI) | payer MEDICARE, OTHER, SELFPAY ==
--- NOTE | 2023-03-16 16:08 | MR_ITS ---
FINAL REPORT CLINICAL HISTORY: left knee pain hx of meniscus sx in 2019 COMPARISON: 08/04/2019 FINDINGS: Multi planar MR imaging was performed of the left knee. The anterior and posterior cruciate ligaments are intact. The quadriceps and patellar tendons are intact. There is a large complex tear of the posterior horn of the medial meniscus. There is also a linear tear in the anterior horn of the medial meniscus. The lateral meniscus is intact. The medial and lateral collateral ligaments appear intact. The medial and lateral retinacula appear intact. There are a large number of osteochondral lesions involving the medial femoral condyle and medial tibial plateau with adjacent bone marrow edema. These are more prominent than noted on the prior MRI. There is significant narrowing of the lateral facet of the patella, best seen on images #15 through 19 of series 3. These are also more prominent than noted on the prior examination. A small joint effusion is present. IMPRESSION: Tears of both the posterior and anterior horns of the medial meniscus as described. Osteochondral lesions with associated bone marrow edema in the medial femoral condyle and medial tibial plateau, with significant narrowing of the patellofemoral joint as described. This is more advanced osteoarthritic change than noted on the prior MRI. Reviewed, Interpreted and Dictated by Flako New MD Transcribed by Loni Guzman Authenticated and [facility]
== END ==
PROVIDERS: PCP Family Medicine; Visit Provider Family Medicine
DX: M25.562 Pain in left knee (principal)
CPT/HCPCS: 73721

== ENCOUNTER → 2023-04-20 07:14 | Outpatient (CLI) | payer MEDICARE, OTHER, SELFPAY ==
--- NOTE | 2023-04-20 07:26 | ECG_ITS ---
APPROVED REPORT Exam: Resting ECG HR:63 bpm ECG Measurements Heart Rate 63 AXES IL 159 P 41 QRSd 88 QRS 6 QT 391 T 52 QTc 398 Conclusion SINUS RHYTHM LOW QRS VOLTAGE IN EXTREMITY LEADS [QRS DEFLECTION < 0.5 mV IN LIMB LEADS] SEPTAL MYOCARDIAL INFARCTION , OF INDETERMINATE AGE [40+ ms Q WAVE IN V1/V2] ABNORMAL ECG UNCONFIRMED REPORT Electronically signed by : Raúl Gastelum MD 04/21/2023 08:50:13
--- NOTE | 2023-04-20 07:35 | XR_ITS ---
FINAL REPORT CLINICAL HISTORY: Pre Op COMPARISON: 08/23/2019 FINDINGS: Two views of the chest were obtained. The heart size and pulmonary vascularity are within normal limits. The mediastinum is normal. No acute pulmonary abnormality is identified. There is no pneumothorax. The bony thorax is intact. IMPRESSION: No active cardiopulmonary disease. Reviewed, Interpreted and Dictated by Hugh Sultana III, MD Transcribed by Andria Mcneill Authenticated and . [facility]
[2023-04-20 07:39] LABS: Basophils % 0.3 % (0.1-2.0); Eosinophils # 0.2 K/mm3 (0.0-0.4); Eosinophils % 2.7 % (0.1-12.0); Hematocrit 43.1 % (37.0-47.0); Hemoglobin 14.1 g/dL (12.2-16.2); Lymphocytes # 1.3 K/mm3 (0.7-4.5); Lymphocytes % 20.4 % (10-50); Mean Corpuscular HGB Conc 32.6 g/dL (31.8-35.4); Mean Corpuscular Hemoglobin 30.6 pg (27.0-31.2); Mean Corpuscular Volume 93.8 fl (81-99); Mean Platelet Volume 7.6 fl (7.4-10.4); Monocytes # 0.4 K/mm3 (0.1-1.0); Monocytes % 6.3 % (1.7-9.3); Neutrophils # 4.3 K/mm3 (1.8-7.8); Neutrophils % 70.3 % (37.0-80.0); Platelet Count 349 K/mm3 (142-424); Red Blood Count 4.59 M/mm3 (4.20-5.40); Red Cell Distribution Width 12.8 % (11.5-17.5); White Blood Count 6.1 K/mm3 (4.8-10.8)
[2023-04-20 08:57] LABS: Chloride 100 mmol/L (98-107); Potassium 4.4 mmoL/L (3.5-5.1); Sodium 136 mmol/L (136-145)
[2023-04-20 08:59] LABS: Blood Urea Nitrogen 14 mg/dl (7-17); Estimated Glomerular Filt Rate 82 ml/min (>60); GFR (African American) 99 ML/MIN (>60)
[2023-04-20 09:00] LABS: Alanine Aminotransferase 46 U/L (12-78); Albumin Level 4.2 g/dl (3.5-5.0); Albumin/Globulin Ratio 1.8 (1.1-1.8); Alkaline Phosphatase 91 U/L (38-126); Anion Gap 11.4 mEq/L (5-15); Aspartate Amino Transferase 42 U/L (14-36); Bilirubin,Total 0.4 mg/dl (0.2-1.3); Calcium 9.8 mg/dl (8.4-10.2); Carbon Dioxide 29 mmol/L (22.0-30.0); Globulin 2.3 g/dL (1.3-3.2); Glucose 98 mg/dl (74-100); Total Protein,Serum 6.5 g/dl (6.3-8.2)
== END ==
PROVIDERS: PCP Family Medicine; Visit Provider Orthopaedic Surgery
DX: J02.9 Acute pharyngitis, unspecified (principal); Z01.818 Encounter for other preprocedural examination
CPT/HCPCS: 36415; 71046; 80053; 85025; 93005

== ENCOUNTER 2023-04-26 09:41 | Day surgery (SDC) | payer MEDICARE, OTHER, SELFPAY ==
[2023-04-23 10:11] VITALS: BMI 24.1
[2023-04-26] VITALS (10 sets, daily range): BP systolic 137–162; BP diastolic 56–86; PULSE 60–69; RESP 16–18; TEMP 36.6–37; O2SAT 96–99
--- NOTE | 2023-04-26 12:12 | P.OP_ITS ---
Date of procedure: 04/26/23 Pre-op Diagnosis:: Left knee medial meniscus tear and osteoarthritis Post-op Diagnosis:: Left knee macerated tear from previous tear of medial meniscus and previous meniscectomy with interbody macerated tear intra-articular loose body intercondylar notch grade IV chondromalacia kissing lesions from previous meniscus tear medial femoral condyle medial tibial plateau Procedure performed:: Left knee arthroscopy partial medial meniscectomy Left knee arthroscopy removal intra-articular loose bodies Surgeon:: Jared Caldwell DO MARKETING AUTOMATION ANALYST:: Jaime Sears Anesthesia: GETA Estimated blood loss (mL): 0 Operative findings:: See dictation Operative note:: Patient is identified preoperatively. Left knee marked with yes my initial. Transferred operative suite. Placed upon operating bed. General anesthesia ministered. Airway secured. Left lower extremity prepped and draped within the knee chiu. Once prepped and draped final operative timeout performed to identify proper patient procedure and extremity. Everyone involved the case agreed. No counter indications beginning. She did receive preoperative antibiotics Marking pen was used to victor hugo bony landmarks in the and standard portal sites. Esmarch was used to exsanguinate the extremity. Pneumatic tourniquet inflated to 300 mmHg. Skin knife was used incise standard anterior lateral portal blunt with trocar was placed in the patellofemoral joint. I swept directly into the medial joint line where the anterior medial portal was made with the help of an 18-gauge spinal needle. Within the medial joint line instrumentation was placed there was a macerated tear of the posterior horn the medial meniscus there is also a kissing lesion of the medial femoral condyle and medial tibial plateau with full-thickness cartilage lesion. Using a combination of straight biter and sucker shaver partial medial meniscectomy was performed back to stable rim to remove impinging meniscal tissue. On evaluation of the intercondylar notch the re was evidence of intra-articular loose body which is large using a grasper sucker shaver the intra-articular loose bodies were removed through the same portals ACL was seen and intact. Attention was brought to the lateral joint line lateral cartilage intact with some mild fraying grade II chondromalacia. So into the medial lateral gutters no other loose bodies were seen back in the patellofemoral joint where there is evidence of full-thickness grade IV chondromalacia the undersurface of the patella did track midline within the trochlea. Cane was removed the joint was drained local anesthesia infiltrated the portal sites skin closed with nylon stitch sterile dressing placed from toe to thigh patient waken anesthesia taken recovery in stable condition. Tourniquet time (min): 17 Condition: stable Disposition: PACU Complications:: None apparent
--- NOTE | 2023-04-26 12:17 | EXP.ANES.CKL ---
[facility] Disclaimer: The information contained in this section may have been updated after the patient was seen, as this information can be updated by other users. Medical History Hypothyroid No significant past medical history Surgical History (Updated 04/26/23 @ 09:53 by Claudette Whitt RN) History of back surgery Hx of knee surgery Family History Other Family history of acute congestive heart failure Family history of cancer Social History Smoking Status: Never smoker second hand exposure: No alcohol intake: never substance use type: denies use current occupational status: retired Travel in the last 8 weeks: None household members: spouse housing: house current occupational exposures/hazards: No caffeine: Yes [facility] Anesthesia Checklist Patient Identification Patient Identification: Arm Band Structural Data Admitted From: Home Planned Operative Procedure/s: Left Knee Arthroscopy, Medial Meniscectomy Consent for Planned Operative Procedure(s) Verified: Yes Verified Documents: Surgical Consent and History and Physical NPO Status Verified Time NPO: 00:00 Additional verifications Anesthesia Reactions: No Hx Blood Transfusions: No Blood Transfusion Reaction: No Airway Assessment Mallampati Score:: Class II C-Spine Mobility Assessed: Yes TMJ Mobility Assessed: Yes Dentition: Good Dentition Neurological Assessment Level of Consciousness: Awake and Alert Anesthesia Plan Anesthesia Risk discussed: Yes Anesthesia Plan: Verified ASA Class: II Anesthesia Type: General
--- NOTE | 2023-04-26 12:18 | P.PNANES_ITS ---
[facility] Anesthesia Record Part I Anesthesia Record I Intake, IV Amount: 700 Hydration: Adequate Estimated blood loss (mL): 5 Urine output (mL): 0 Blood Products used (#): none Blood Pressure: 144/83 SaO2: 96 Pulse Rate: 68 Airway Patency: Patent Respiratory Rate: 16 Temperature: 98.6 F Patient is:: Drowsy and Stable Stable to PACU at:: 12:15
--- NOTE | 2023-04-27 07:24 | EXP.ANES.II ---
[facility] Anesthesia Record Part II Anesthesia Record Part II Discharge Time: 12:35 Destination: Surgical Day Care (OP Surgery) PACU nurse assessment reviewed?: Yes Patient Condition:: Good Anesthesia Complications:: None Swallowing reflex intact?: Yes Airway Patency: Patent Cyanosis?: No Blood Pressure: 160/56 SaO2: 98 Respiratory Rate: 17 Pulse Rate: 62 Temperature: 97.9 F Mental Status: Alert & Oriented Pain level:: 2 Nausea and/or vomitting:: None Intake, IV Amount: 0 Hydration: Adequate
[2023-04-27 07:25] VITALS: BP 160/56; PULSE 62; RESP 17; TEMP 36.6; O2SAT 98
== END 2023-04-26 13:53 | disposition home or self-care (01) ==
PROVIDERS: PCP Family Medicine; Visit Provider Orthopaedic Surgery
PROC: (CPT 29870; principal; 2023-04-26 11:30)
DX: S83.232A Complex tear of medial meniscus, current injury, left knee, initial encounter (principal); Z79.899 Other long term (current) drug therapy; M94.262 Chondromalacia, left knee; M23.42 Loose body in knee, left knee
CPT/HCPCS: 29881; 96374; J2405

== ENCOUNTER 2023-09-15 07:45 | Day surgery (SDC) | payer MEDICARE, OTHER, SELFPAY ==
[2023-09-15 08:01] VITALS: BP 146/77; PULSE 70; RESP 18; TEMP 36.7; O2SAT 95; BMI 25.1
[2023-09-15] MEDS: LACTATED RINGERS 1000ML 1,000 ML 25 ML IV (08:11)
--- NOTE | 2023-09-15 08:15 | EXP.ANES.CKL ---
[facility] Disclaimer: The information contained in this section may have been updated after the patient was seen, as this information can be updated by other users. Medical History Hypothyroid No significant past medical history Surgical History History of back surgery Hx of knee surgery Family History Other Family history of acute congestive heart failure Family history of cancer Social History Smoking Status: Never smoker second hand exposure: No alcohol intake: never substance use type: denies use current occupational status: retired Travel in the last 8 weeks: None household members: spouse housing: house current occupational exposures/hazards: No caffeine: Yes [facility] Anesthesia Checklist Patient Identification Patient Identification: Arm Band and Verbal (Name & ) Structural Data Admitted From: Home Planned Operative Procedure/s: EGD Verified Documents: Surgical Consent NPO Status Verified Time NPO: 00:00 Additional verifications Anesthesia Reactions: No Hx Blood Transfusions: No Blood Transfusion Reaction: No Airway Assessment Mallampati Score:: Class I C-Spine Mobility Assessed: Yes TMJ Mobility Assessed: Yes Dentition: Good Dentition Neurological Assessment Level of Consciousness: Awake Hx Seizures: No Numbness or tingling in extremities: No Anesthesia Plan Anesthesia Risk discussed: Yes Anesthesia Plan: Verified ASA Class: II Anesthesia Type: MAC
[2023-09-15 08:44] VITALS: O2SAT 95
--- NOTE | 2023-09-15 08:58 | P.PCN_ITS ---
Procedure: Date: 09/15/23 Patient Date of :: 1950 Procedure Performed:: EGD Indications:: The patient is a 72-year-old who presents for EGD evaluation of dysphagia symptom Performing Provider:: Kenrick Brown MD Referring Provider:: Roshan Mcgee MD Sedation:: See RN records Procedure:: The gastroscope was gently passed through the incisoral orifice into the oral cavity and under direct visualization the esophagus was intubated. The endoscope was passed down the esophagus, through the stomach, and into the duodenum. Color, texture, mucosa, and anatomy of the esophagus, stomach, and duodenum were carefully examined with the scope. Findings:: The mid to distal esophagus showed mild tortuosity. Z-line was measured at 38 cm. Just above the GE junction there was a stenosis and mild esophagitis. Biopsies were obtained with a cold forceps for histology. The gastroscope passed easily through this area. Esophageal dilatation was performed seque ntially with an 18-19- 20 mm TTS balloon. There was mild inflammation of the gastric antrum and body characterized by erythema. Biopsies were taken with a cold forceps for histology. The examined duodenum was normal. Patient tolerated the procedure well Recommendations:: Await pathology results If dysphagia symptoms does not improve after esophageal dilatation, then recommend barium esophagram with tablet Follow-up with referring provider Complications:: None Estimated blood obtained (mL): 0 Colonoscopy Component Colonoscopy Component Was a colonoscopy performed during today's procedure?: No
[2023-09-15 09:00] VITALS: BP 99/54; PULSE 72; RESP 14; TEMP 36.4; O2SAT 94
[2023-09-15 09:10] VITALS: BP 90/52; PULSE 66; RESP 16; O2SAT 95
[2023-09-15 09:20] VITALS: BP 93/56; PULSE 61; RESP 16; O2SAT 95
[2023-09-15 09:30] VITALS: BP 110/72; PULSE 61; RESP 16; O2SAT 97
== END 2023-09-15 09:54 | disposition home or self-care (01) ==
PROVIDERS: PCP Family Medicine; Visit Provider Internal Medicine
PROC: 0DJ08ZZ Inspection of Upper Intestinal Tract, Via Natural or Artificial Opening Endoscopic (ICD-10-PCS; CPT 43235; principal; 2023-09-15 09:00)
DX: R13.10 Dysphagia, unspecified (principal); K22.89 Other specified disease of esophagus; K22.2 Esophageal obstruction; K20.90 Esophagitis, unspecified without bleeding; K29.70 Gastritis, unspecified, without bleeding; K31.89 Other diseases of stomach and duodenum
CPT/HCPCS: 43239; 43249; 88305; C1726

== ENCOUNTER 2024-02-15 10:25 | Outpatient (POV) | payer MEDICARE, OTHER, SELFPAY | END 2024-02-15 23:59 | disposition home or self-care (01) | LOC: SC 10:26 | PROVIDERS: PCP Family Medicine; Visit Provider Dermatology | DX: Z00.00 Encounter for general adult medical examination without abnormal findings (principal) ==

== ENCOUNTER 2024-03-16 09:20 | Day surgery (SDC) | payer MEDICARE, OTHER, SELFPAY ==
[2024-03-13 16:44] VITALS: BMI 24.3
[2024-03-16] MEDS: LACTATED RINGERS 1000ML 1,000 ML 25 ML IV (09:41)
[2024-03-16 09:43] VITALS: BP 164/82; PULSE 73; RESP 18; TEMP 36.2; O2SAT 93
--- NOTE | 2024-03-16 10:05 | P.PNANES_ITS ---
[facility] Disclaimer: The information contained in this section may have been updated after the patient was seen, as this information can be updated by other users. Medical History Hyperlipidemia Hypothyroid Surgical History History of back surgery Hx of knee surgery Family History Other Family history of acute congestive heart failure Family history of cancer Social History Smoking Status: Never smoker second hand exposure: No alcohol intake: never substance use type: denies use current occupational status: retired Travel in the last 8 weeks: None household members: spouse housing: house current occupational exposures/hazards: No caffeine: Yes [facility] Anesthesia Checklist Patient Identification Patient Identification: Arm Band and Verbal (Name & ) Structural Data Admitted From: Home Planned Operative Procedure/s: EGD w/Dilation Consent for Planned Operative Procedure(s) Verified: Yes Verified Documents: Surgical Consent and History and Physical NPO Status Verified Time NPO: 18:00 Chart Verification Results Verified: CBC, BMP, ECG and Chest Xray Additional verifications Patient : No Anesthesia Reactions: No Hx Blood Transfusions: No Blood Transfusion Reaction: No Cardiovascular Assessment Heart Sounds: S1 & S2 Pulse Rhythm: Irregular Peripheral Edema: No Airway Assessment Mallampati Score:: Class I C-Spine Mobility Assessed: Yes (FROM demonstrated) TMJ Mobility Assessed: Yes Dentition: Good Dentition (Nothing loose per pt.) Neurological Assessment Level of Consciousness: Awake, Alert, Appropriate and Follows Commands Hx Seizures: No Numbness or tingling in extremities: No Anesthesia Plan Anesthesia Risk discussed: Yes Anesthesia Plan: Verified ASA Class: II Anesthesia Type: MAC
[2024-03-16 10:17] VITALS: BP 127/69; PULSE 66; RESP 16; O2SAT 97
[2024-03-16 10:44] VITALS: O2SAT 100
--- NOTE | 2024-03-16 10:56 | HMH.SCOPE ---
Procedure: Date: 03/16/24 Patient Date of :: 1950 Procedure Performed:: EGD and dilation Indications:: Dysphagia Performing Provider:: Jose Gregory MD Referring Provider:: Jovana Gregory APRN Sedation:: Propofol Procedure:: The gastroscope was gently passed through the incisoral orifice into the oral cavity and under direct visualization the esophagus was intubated. The endoscope was passed down the esophagus, through the stomach, and into the duodenum. Color, texture, mucosa, and anatomy of the esophagus, stomach, and duodenum were carefully examined with the scope. Findings:: Oropharynx: normal Esophagus: normal, mild distal esophagitis, empiric dilation performed with 58F bougie dilator EG Junction: intact at 40 cm Cardia: normal Fundus: normal Body: normal Antrum: normal Duodenal bulb: normal Duodenum (second and third portion): normal Impression: Symptomatic dysphasia treated with bougie dilation Mild distal esophagitis Recommendations:: Repeat dilation in about 3 years or so, sooner if clinically indicated. May be of benefit to discontinue alendronate Complications:: None Estimated blood obtained (mL): 0 Colonoscopy Component Colonoscopy Component Was a colonoscopy performed during today's procedure?: No
[2024-03-16 10:57] VITALS: BP 110/66; PULSE 69; RESP 16; TEMP 36.6; O2SAT 96
== END 2024-03-16 10:33 | disposition home or self-care (01) ==
PROVIDERS: PCP Family Medicine; Visit Provider Internal Medicine Gastroenterology
PROC: 0DJ08ZZ Inspection of Upper Intestinal Tract, Via Natural or Artificial Opening Endoscopic (ICD-10-PCS; CPT 43235; principal; 2024-03-16 10:30)
DX: R13.10 Dysphagia, unspecified (principal); K20.90 Esophagitis, unspecified without bleeding
CPT/HCPCS: 43450; J7120

== ENCOUNTER 2024-08-04 08:11 | Outpatient (CLI) | payer MEDICARE, OTHER, SELFPAY ==
[2024-08-04 08:54] LABS: Basophils % 0.6 % (0.1-2.0); Eosinophils # 0.1 K/mm3 (0.0-0.4); Eosinophils % 2.7 % (0.1-12.0); Hematocrit 38.9 % (37.0-47.0); Hemoglobin 13.1 g/dL (12.2-16.2); Lymphocytes # 1.1 K/mm3 (0.7-4.5); Lymphocytes % 20.8 % (10-50); Mean Corpuscular HGB Conc 33.7 g/dL (31.8-35.4); Mean Corpuscular Volume 92.2 fl (81-99); Mean Platelet Volume 9.4 fl (7.4-10.4); Monocytes # 0.4 K/mm3 (0.1-1.0); Monocytes % 7.8 % (1.7-9.3); Neutrophils # 3.5 K/mm3 (1.8-7.8); Neutrophils % 67.7 % (37.0-80.0); Platelet Count 307 K/mm3 (142-424); Red Blood Count 4.22 M/mm3 (4.20-5.40); Red Cell Distribution Width 12.3 % (11.5-17.5); White Blood Count 5.1 K/mm3 (4.8-10.8)
[2024-08-04 09:35] LABS: Alanine Aminotransferase 58 U/L (12-78); Albumin Level 4.6 g/dl (3.5-5.0); Albumin/Globulin Ratio 2.3 (1.1-1.8); Alkaline Phosphatase 89 U/L (38-126); Aspartate Amino Transferase 51 U/L (14-36); Bilirubin,Total 0.4 mg/dl (0.2-1.3); Blood Urea Nitrogen 23 mg/dl (7-17); Calcium 10.4 mg/dl (8.4-10.2); Carbon Dioxide 29 mmol/L (22.0-30.0); Chloride 101 mmol/L (98-107); Chol/HDL Ratio 4.3 (1-3.5); Cholesterol 214 mg/dl (140-200); Estimated Glomerular Filt Rate 82 ml/min (>60); GFR (African American) 99 ML/MIN (>60); Glucose 94 mg/dl (74-100); HDL Cholesterol 50 mg/dl (40-60); Sodium 138 mmol/L (136-145); Total Protein,Serum 6.6 g/dl (6.3-8.2); Triglycerides 105 mg/dl (30-150); VLDL Cholesterol 21 mg/dL (0-40)
[2024-08-04 09:42] LABS: Anion Gap 12.5 mEq/L (5-15); Potassium 4.5 mmoL/L (3.5-5.1)
[2024-08-04 09:46] LABS: Direct LDL Cholesterol 136.18 mg/dL (100-129)
[2024-08-04 09:51] LABS: Free T4 (Free Thyroxine) 0.91 ng/dl (0.78-2.19)
[2024-08-04 09:53] LABS: 25-OH Vitamin D, Total 45.2 ng/mL (30-100)
== END 2024-08-04 23:59 | disposition home or self-care (01) ==
LOC: LAB 08:15
PROVIDERS: PCP Family Medicine; Visit Provider Family Medicine
DX: E78.00 Pure hypercholesterolemia, unspecified (principal); M85.80 Other specified disorders of bone density and structure, unspecified site; Z86.2 Personal history of diseases of the blood and blood-forming organs and certain disorders involving the immune mechanism; E03.9 Hypothyroidism, unspecified
CPT/HCPCS: 36415; 80053; 80061; 82306; 84439; 84443; 85025

== ENCOUNTER 2024-12-05 08:53 | Outpatient (CLI) | payer MEDICARE, OTHER, SELFPAY ==
--- NOTE | 2024-12-05 08:58 | XR_ITS ---
FINAL REPORT CLINICAL HISTORY: BRONCHITIS- 2 week check up COMPARISON: 04/20/2023 FINDINGS: 2 views of the chest were obtained. No acute pulmonary density is evident. There is no evidence of effusion or other pleural disease. The mediastinum has a normal appearance. The cardiac silhouette is unremarkable. IMPRESSION: Unremarkable chest exam. Reviewed, Interpreted and Dictated by Aurelio Villaseñor MD Transcribed by Berna Erickson Authenticated and [facility]
== END 2024-12-05 23:59 | disposition home or self-care (01) ==
LOC: RAD 08:55
PROVIDERS: PCP Family Medicine; Visit Provider Physician Assistant
DX: J40 Bronchitis, not specified as acute or chronic (principal)
CPT/HCPCS: 71046

== ENCOUNTER 2024-12-08 14:00 | Outpatient (CLI) | payer MEDICARE, OTHER, SELFPAY | END 2024-12-08 23:59 | disposition home or self-care (01) | LOC: LAB.DROPOF 12-12 11:13 | PROVIDERS: Visit Provider Nurse Practitioner | DX: R35.0 Frequency of micturition (principal); N39.0 Urinary tract infection, site not specified; B96.20 Unspecified Escherichia coli [E. coli] as the cause of diseases classified elsewhere | CPT/HCPCS: 87086; 87088; 87186 ==

== ENCOUNTER 2025-01-04 08:52 | Outpatient (CLI) | payer MEDICARE, OTHER, SELFPAY ==
--- OUTSIDE RECORDS SUMMARY | 2024-11-30 07:00 | XMS_ITS ---
Author Organization [facility] Address [address] [place] [id number] Care Team Providers Care Care Team Assistant Name Role Phone Roshan Mcgee Primary Care Provider [phone] Quynh Ortega Unavailable [phone] Allergies No Known Allergies Results Component Value Reference Range Notes CBC Fingerstick (in house) Reviewed date:11/30/2024 03:46:14 PM Interpretation: Performing Lab: Notes/Report: wbc 9.4 3.5 - 10 lym 18.5 15 - 50 mid 5.2 2 - 15 gran 76.3 35 - 80 rbc 4.25 3.5 - 5.5 hgb 130. 11.5 - 16.5 hct 38.9 35 - 55 mcv 91.4 75 - 100 mch 30.6 25 - 35 mchc 33.5 31 - 38 plat 271 100 - 400 REASON FOR VISIT still not feeling better Medications Medication SIG (Take, Route, Frequency, Duration) Notes Start Date End Date Status Benzonatate 200 MG 1 capsule as needed Orally Active Atorvastatin Calcium 20 mg 1 tablet Oral ly once daily for 90 days Active Albuterol Sulfate HFA 108 (90 Base) MCG/ACT 1 puff Inhalation every 4 hrs, prn 11/30/2024 Active Meloxicam 15 mg TAKE ONE TABLET BY M OUTH EVERY DAY --TAKE WITH FOOD-- for 90 Active Alendronate Sodium 70 mg TAKE ONE TABLET BY MOUTH ONCE WEEKLY (take with FULL GLASS OF water IN THE MORNING BEFORE eating AND remain upright FOR 30 MINUTES AFTER) for 90 Active Zithromax Z-Isael 250 MG as directed Orally Active Promethazine-DM 6.25-15 MG/5ML 5 mL as needed Orally Active Back Support - as directed Act maikol Tylenol PM Extra Strength 500-25 MG 1 tablet at bedtime as needed Orally Once a day for 30 day(s) Active Levothyroxine Sodium 50 MCG 1 tab(s) ora lly once a day for 90 days Active Omeprazole 20 MG 1 capsule 1/2 to 1 h our before morning meal Orally Once a day for 30 day(s) Active Vital Signs Blood pressure systolic 126 mm Hg 12/01/19 25 Blood pressure diastolic 74 mm Hg 025 Heart Rate 88 /min 11/30/2024 Height 63 in 11/30/2024 Weight 134.6 lbs 11/30/2024 BMI 23.84 kg/m2 11/30/2024 Encounters Encounter Location Date Provider Diagnosis [facility] [address] [facility] [address] [facility] [address] [place], [place] [id number] 11/30/2024 Quynh Ortega Acute URI J06.9 ; Bronchitis J40 and BMI 23.0-23.9, adult Z68.23 Assessments Encounter Date Diagnosis (ICD Code) Assessment Notes Treatment Notes Treatment Clinical Notes Section Notes 11/30/2024 Acute URI (ICD-10 - J06.9) 11/30/2024 Bronchitis (ICD-10 - J40) 11/30/2024 BMI 23.0-23.9, adult (ICD-10 - Z68.23) Plan Of Treatment Medication Medication Name Sig Start Date Stop Date Notes Benzonatate 200 MG 1 capsule as needed Orally Albuterol Sulfate HFA 108 (9 0 Base) MCG/ACT 1 puff Inhalation every 4 hrs, prn 11/30/2024 Zithromax Z-Isael 250 MG as directed Orally Promethazine-DM 6.25-15 MG/5ML 5 mL as needed Orally Next Appt Details Follow Up: prn, Reason: Provider Name:Roshan wilson, 01/05/2025 09:45:00 AM, [address] [place] [address] [address], [place], [place], [phone], Provider Name:Roshan wilson, 07/30/2025 09:00:00 AM, [address] [place] [address], [place], [place], [id number], Progress Notes * SHERRELL SEGURAOB:1950 ( 74 yo F)Acc No.[id number]:11/30/2024 Progress Notes Patient: NATALIYA WILKERSON Provider: FLORENCIO Urbina :1950 A ge:74 Y S ex:Female Date:11/30/2024 Address:[facility] [place], [id number] Pcp:Roshan Mcgee Subjective: * Chief Complaints: * 1 . Still not feeling better. * HPI: E NT/respiratory: 74 year old female presents with c/o cough P t is here today with c/o not feeling any better. Pt was seen here on Wednesday for c/o cough and sts she is still taking her antibiotics. * ROS: D ERMATOLOGY: no R dunia. n o H courtney. G ASTROENTEROLOGY: no N ausea. n o V omiting. U ROLOGY: no D ifficulty urinating. n o B lood in urine. * Medical History: H yperlipidemia, Arthritis, [employer] - Dr. Partida, Hypothyroidism, Esophageal spasms. * Surgical History: B TL , D&C , LT Meiniscus Repair 08/2019, Lumbar fusion L4-L5 2021. * Hospitalization/Major Diagno stic Procedure: C ut Finger- [facility] ER 12/21/2012. * Family History: F ather: 75 yrs, heart,cancer. M other: 74 yrs, lung cancer. 2 son(s) , 1 daughter(s) - healthy. . * Social History: C URRENT TOBACCO USE S moking Status: Patient does NOT smoke. C affeine: yes, frequency: 3 cups per day. Home smoke detector use: yes. Marital Status: . 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 Past smoking status: no. Alcohol: No. * Medications: T aking Omeprazole 20 MG Capsule Delayed Release 1 capsule 1/2 to 1 hour before morning meal Orally Once a day , Taking Back Support - Miscellaneous as directed , Taking Tylenol PM Extra Strength 500-25 MG Tablet 1 tablet at bedtime as needed Orally Once a day , Taking Levothyroxine Sodium 50 MCG Tablet 1 tab(s) orally once a day , Taking Atorvastatin Calcium 20 mg Tablet 1 tablet Orally once daily , Taking Meloxicam 15 mg Tablet TAKE ONE TABLET BY MOUTH EVERY DAY --TAKE WITH FOOD-- , Taking Alendronate Sodium 70 mg Tablet TAKE ONE TABLET BY MOUTH ONCE WEEKLY (take with FULL GLASS OF water IN THE MORNING BEFORE eating AND remain upright FOR 30 MINUTES AFTER) , Taking Zithromax Z-Isael 250 MG Tablet as directed Orally once daily , Taking Promethazine-DM 6.25-15 MG/5ML Syrup 5 mL as needed Orally every 6 hrs , Taking Benzonatate 200 MG Capsule 1 capsule as needed Orally Three times a day , Medication List reviewed and reconciled with the patient * Allergies: N .K.D.A. Objective: * Vitals: W t: 134.6, Temp: 98.6, BP: 126/74, HR: 88, Nurse: darinel, Ht: 63, BMI:23.84. * Examination: G eneral Examination: General Appearance: N AD. HEENT: s clera and conjunctiva clear, PERRLA, TM's normal, translucent, nose congested. Oral cavity: n o lesions, mucosa moist and WNL, no erythema. Neck: s upple, no lymphadenopathy. Chest: n ormal shape and expansion. Heart: R SR. Lungs: b ilateral wheezes, no rales. Assessment: * Assessment: 1. A arielle RIVERA - J06.9 (Primary) 2 . B matias - J40 3 .?BMI 23.0-23.9, adult - Z68.23 Plan: * Treatment: Value Reference Range w bc 9.4 3.5 - 10 * l ym 18.5 15 - 50 * m id 5.2 2 - 15 * g ran 76.3 35 - 80 * r bc 4.25 3.5 - 5.5 * h gb 130. 11.5 - 16.5 * h ct 38.9 35 - 55 * m cv 91.4 75 - 100 * m ch 30.6 25 - 35 * m chc 33.5 31 - 38 * p lat 271 100 - 400 * Tonya Greenberg 11/30/2024 11:0 8:04 AM > Provider reviewed results while patient in office. 2.?Bronchitis? Start Albuterol Sulfate HFA Aerosol Solution, 108 (90 Base) MCG/ACT, 1 puff, Inhalation, every 4 hrs, prn, 1, Refills 1.?? * Procedure Codes: G 2211 Complex e/[place], [address] CAPILLARY BLOOD DRAW, 94575 CBC WITH AUTO DIFF, 3074F SYST BP LT 130 MM HG, 3078F DIAST BP < 80 MM HG * Follow Up: p rn * Billing Information: * Visit Code: 67149 Office Visit, Est Pt., Level 3. * Procedure Codes: G2211 Complex e/[place]. [address] CAPILLARY BLOOD DRAW. 76630 CBC WITH AUTO DIFF. 3074F SYST BP LT 130 MM HG. 3078F DIAST BP < 80 MM HG. * Electronic signature of FLORENCIO Goodrich on 01/04/2025 at 08:56 AM EDT Sign off status: Pending * Provider: FLORENCIO rUbina Date: 0 11/30/2024 Generated for Chrisi ng/Faxing/eTransmitting on: 0 01/04/2025 08:56 AM EDT History and Physical Notes * HPI (History of Present Illness) Category Sub-Category Detail Notes Category Not es ENT/respiratory cough Pt is here today with c/o not feeling any better. Pt was seen here on Wednesday for c/o cough and sts she is still taking her antibiotics Examination Category Sub-Category Detail Notes Category Not es General Examination HEENT: sclera and c onjunctiva clear, PERRLA, TM's normal, translucent, nose congested Heart: RSR Lungs: bilateral wheezes, n o rales General Appearance: NAD Neck: supple, no lymphaden opathy Oral cavity: no lesions, mucosa m oist and WNL, no erythema Chest: normal shape and exp ansion
--- OUTSIDE RECORDS SUMMARY | 2024-12-12 07:15 | XMS_ITS ---
[facility] Organization [facility] Address [address] [place] [id number] Care Team Providers Care Immigration Investigator Name Role Phone BloomdaleMorenita montenegroian Primary Care Provider [phone] Allergies No Known Allergies Results Component Value Reference Range Notes CBC Fingerstick (in house) Reviewed date:12/12/2024 02:37:12 PM Interpretation: Performing Lab: Notes/Report: wbc 10.6 3.5 - 10 lym 13.0% 15 - 50 mid 18.9% 2 - 15 gran 68.1% 35 - 80 rbc 3.58 3.5 - 5.5 hgb 11.3 11.5 - 16.5 hct 33.9 35 - 55 mcv 94.7 75 - 100 mch 31.6 25 - 35 mchc 33.3 31 - 38 plat 405 100 - 400 REASON FOR VISIT cough Medications Medication SIG (Take, Route, Frequency, Duration) Notes Start Date End Date Status Albuterol Sulfate HFA 108 (90 Base) MCG/ACT 1 puff Inhalation every 4 hrs, prn 11/30/2024 Active dexAMETHasone 4 MG 1 tablet Orally Two times a day for 5 days 12/12/2024 Active Mupirocin 2 % 1 application Protective Officer ally Twice a day 12/12/2024 Active Levothyroxine Sodium 50 mcg TAKE ONE TAB LET BY MOUTH EVERY DAY for 90 Active Meloxicam 15 mg TAKE ONE TABLET BY M OUTH EVERY DAY --TAKE WITH FOOD-- for 90 Active Alendronate Sodium 70 mg TAKE ONE TABLET BY MOUTH ONCE WEEKLY (take with FULL GLASS OF water IN THE MORNING BEFORE eating AND remain upright FOR 30 MINUTES AFTER) for 90 Active Atorvastatin Calcium 20 mg 1 tablet Oral ly once daily for 90 days Active Promethazine-DM 6.25-15 MG/5ML 5 mL as needed Orally Active Benzonatate 200 MG 1 capsule as needed Orally Active Omeprazole 20 MG 1 capsule 1/2 to 1 h our before morning meal Orally Once a day for 30 day(s) Active Back Support - as directed Act maikol Fluticasone Propionate 50 MCG/ACT 1 spray in each nostril Nasally Twice a day Active Cefdinir 300 MG 1 cap(s) Orally Two times a day Active Tylenol PM Extra Strength 500-25 MG 1 tablet at bedtime as needed Orally Once a day for 30 day(s) Active Vital Signs Blood pressure systolic 132 mm Hg 12/13/19 25 Blood pressure diastolic 78 mm Hg 025 Heart Rate 87 /min 12/12/2024 Height 63 in 12/12/2024 Weight 136.2 lbs 12/12/2024 BMI 24.12 kg/m2 12/12/2024 Encounters Encounter Location Date Provider Diagnosis [facility] [address] [facility] [address] [facility] [address] [place], [place] [id number] 12/12/2024 Roshan Mcgee Persistent cough R05 .3 ; Sore in nose J34.89 and BMI 24.0-24.9, adult Z68.24 Assessments Encounter Date Diagnosis (ICD Code) Assessment Notes Treatment Notes Treatment Clinical Notes Section Notes 12/12/2024 Persistent cough (ICD-10 - R05.3) 12/12/2024 Sore in nose (ICD-10 - J34.89) 12/12/2024 BMI 24.0-24.9, adult (ICD-10 - Z68.24) Plan Of Treatment Medication Medication Name Sig Start Date Stop Date Notes dexAMETHasone 4 MG 1 tablet Orally Two times a day for 5 days 12/12/2024 Mupirocin 2 % 1 application Externally Twice a day 025 Next Appt Details Follow Up: 3 or 4 weeks, Lisa son: Provider Name:Roshan wilson, 01/05/2025 09:45:00 AM, [address] [facility], [address], [place], [id number], Provider Name:Rosahn wilson, 07/30/2025 09:00:00 AM, [address], [address], [place], [phone], Progress Notes * SHERRELL SEGURAOB:1950 ( 74 yo F)Acc No.[id number]:12/12/2024 Progress Notes Patient: NATALIYA WILKERSON Provider: Gilbert Mcgee M.D. :1950 A ge:74 Y S ex:Female Date:12/12/2024 Address:[place], [id number] Subjective: * Chief Complaints: * 1 . Cough. * HPI: E NT/respiratory: 74 year old female presents with c/o cough P t complains on ongoing dry without any sputum production cough. Pt states she can feel crackling in her chest but is not able to get anything up when she coughs. Pt states she has had cough for 4 weeks and has been seen 4 times. Pt has completed Z-Pack and is taking Bromfed and Benzonatate but has not had any improvement. * ROS: D ERMATOLOGY: no R dunia. n o H courtney. G ASTROENTEROLOGY: no N ausea. n o V omiting. U ROLOGY: no D ifficulty urinating. n o B lood in urine. 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 * Surgical History: B TL , D&C , LT Meiniscus Repair 08/2019, Lumbar fusion L4-L5 2021. * Hospitalization/Major Diagno stic Procedure: C ut Finger- [facility] ER 12/21/2012. * Family History: F ather: 75 yrs, heart,cancer. M other: 74 yrs, lung cancer. 2 son(s) , 1 daughter(s) - healthy. . * Social History: C URRENT TOBACCO USE S moking Status: Patient does NOT smoke. C affeine: yes, frequency: 3 cups per day. Home smoke detector use: yes. Marital Status: . 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 Past smoking status: no. Alcohol: No. * Medications: T aking Fluticasone Propionate 50 MCG/ACT Suspension 1 spray in each nostril Nasally Twice a day , Taking Cefdinir 300 MG Capsule 1 cap(s) Orally Two times a day , Taking Omeprazole 20 MG Capsule Delayed Release 1 capsule 1/2 to 1 hour before morning meal Orally Once a day , Taking Back Support - Miscellaneous as directed , Taking Tylenol PM Extra Strength 500-25 MG Tablet 1 tablet at bedtime as needed Orally Once a day , Taking Atorvastatin Calcium 20 [...] upright FOR 30 MINUTES AFTER) , Taking Promethazine-DM 6.25-15 MG/5ML Syrup 5 mL as needed Orally , Taking Benzonatate 200 MG Capsule 1 capsule as needed Orally , Taking Albuterol Sulfate HFA 108 (90 Base) MCG/ACT Aerosol Solution 1 puff Inhalation every 4 hrs, prn , Taking Levothyroxine Sodium 50 mcg Tablet TAKE ONE TABLET BY MOUTH EVERY DAY , Discontinued Zithromax Z-Isael 250 MG Tablet as directed Orally , Medication List reviewed and reconciled with the patient * Allergies: N .K.D.A. Objective: * Vitals: W t: 136.2, Temp: 98.1, BP: 132/78, HR: 87, O2 Sat: 97% on RA, Nurse: lilli, Ht: 63, BMI:24.12. * Examination: E NT/Respiratory: General Appearance: N AD, coughing. Eyes: P ERRLA, sclera clear. Oral cavity : e rythema without exudate on pharynx. Heart : R RR, normal S1 S2. Lungs: c lear to auscultation bilaterally. Assessment: * Assessment: 1. P ersistent cough - R05.3 (Primary) 2 . S ore in nose - J34.89 ? 3 . B WI 24.0-24.9, adult - Z68.24 Plan: * Treatment: Value Reference Range w bc 10.6 3.5 - 10 * l ym 13.0% 15 - 50 * m id 18.9% 2 - 15 * g ran 68.1% 35 - 80 * r bc 3.58 3.5 - 5.5 * h gb 11.3 11.5 - 16.5 * h ct 33.9 35 - 55 * m cv 94.7 75 - 100 * m ch 31.6 25 - 35 * m chc 33.3 31 - 38 * p lat 405 100 - 400 * Catalina Ochoa 12/12/2024 11:24: 09 AM > Provider reviewed results while patient in office. 2.?Sore in nose? Start Mupirocin Ointment, 2 %, 1 application, Externally, Twice a day, 22 grams, Refills 0.? * Procedure Codes: G 2211 Complex e/[place] [address] CAPILLARY BLOOD DRAW, 38610 CBC WITH AUTO DIFF, G8783 BP SCR PRFRM RCMDD DEFIND SCR INTVL, G8752 MOST RECENT SYSTOLIC BP < 140MM HG, G8754 MOST RECENT DIASTOLIC BP < 90MM HG, G8420 BMI<30 AND >=22 CALC & DOCU * Follow Up: 3 or 4 weeks * Billing Information: * Visit Code: 24588 Office Visit, Est Pt., Level 3. * Procedure Codes: G2211 Complex e/[place]. [address] CAPILLARY BLOOD DRAW. 14200 CBC WITH AUTO DIFF. G8783 BP SCR PRFRM RCMDD DEFIND SCR INTVL. G8752 MOST RECENT SYSTOLIC BP < 140MM HG. G8754 MOST RECENT DIASTOLIC BP < 90MM HG. G8420 BMI<30 AND >=22 CALC & DOCU. * Electronic signature of Gloria Mcgee MD on 01/04/2025 at 08:56 AM EDT Sign off status: Pending * Provider: Gilbert Mcgee M.D. Date: 0 12/12/2024 Generated for Marah arriaga/Briana/Rico on: 0 01/04/2025 08:56 AM EDT History and Physical Notes * HPI (History of Present Illness) Category Sub-Category Detail Notes Category Not es ENT/respiratory cough Pt complains on ongoing dry without any sputum production cough. Pt states she can feel crackling in her chest but is not able to get anything up when she coughs. Pt states she has had cough for 4 weeks and has been seen 4 times. Pt has completed Z-Pack and is taking Bromfed and Benzonatate but has not had any improvement Examination Category Sub-Category Detail Notes Category Not es ENT/Respiratory Oral cavity : erythema without exudate on pharynx Heart : RRR, normal S1 S2 Lungs: clear to auscultatio n bilaterally General Appearance: NAD, coughing Eyes: PERRLA, sclera clear
--- OUTSIDE RECORDS SUMMARY | 2024-12-22 10:45 | XMS_ITS ---
[facility] Address [address] [place] [id number] Care Team Providers Care Metal Expediter Name Role Phone ArelyMorenitaRoshan Primary Care Provider Allergies No Known Allergies Results Component Value Reference Range Notes CBC Fingerstick (in house) Reviewed date:12/24/2024 06:17:46 PM Interpretation: Performing Lab: Notes/Report: wbc 8.5 3.5 - 10 lym 21.4 15 - 50 mid 6.5 2 - 15 gran 72.1 35 - 80 rbc 4.02 3.5 - 5.5 hgb 12.7 11.5 - 16.5 hct 38.0 35 - 55 mcv 94.4 75 - 100 mch 31.6 25 - 35 mchc 33.5 31 - 38 plat 437 100 - 400 REASON FOR VISIT coughing and heaviness in chest Medications Medication SIG (Take, Route, Frequency, Duration) Notes Start Date End Date Status Atorvastatin Calcium 20 mg 1 tablet Oral ly once daily for 90 days Active Tylenol PM Extra Strength 500-25 MG 1 tablet at bedtime as needed Orally Once a day for 30 day(s) Active Back Support - as directed Act maikol Omeprazole 20 MG 1 capsule 1/2 to 1 h our before morning meal Orally Once a day for 30 day(s) Active valACYclovir HCl 1 GM 1 tablet Orally tw ice a day for 7 days 12/22/2024 Active Zithromax Z-Isael 250 MG as directed Orall y daily for 5 days 12/22/2024 Active dexAMETHasone 2 MG 1 tablet Orally twic e a day for 5 days 12/22/2024 Active Mupirocin 2 % 1 application Senior Relationship Manager ally Twice a day 12/12/2024 Active Levothyroxine Sodium 50 mcg TAKE ONE TAB LET BY MOUTH EVERY DAY for 90 Active Alendronate Sodium 70 mg TAKE ONE TABLET BY MOUTH ONCE WEEKLY (take with FULL GLASS OF water IN THE MORNING BEFORE eating AND remain upright FOR 30 MINUTES AFTER) for 90 Active Meloxicam 15 mg TAKE ONE TABLET BY M OUTH EVERY DAY - TAKE WITH FOOD- for 90 Active Problems Problem Type SNOMED Code ICD Code Onset Dates Problem Status W/U Status Risk Notes Problem Fever blister (B00.1) Active confirmed Vital Signs Blood pressure systolic 116 mm Hg 12/23/19 25 Blood pressure diastolic 70 mm Hg 025 Heart Rate 75 /min 12/22/2024 Height 63 in 12/22/2024 Weight 132.4 lbs 12/22/2024 BMI 23.45 kg/m2 12/22/2024 Encounters Encounter Location Date [facility] [address] [facility] [address] [place] [address], [place] [phone] 12/22/2024 Roshan [place] Cough R05.9 ; Fever blister B00.1 ; Osteoporosis screening Z13.820 ; Colon cancer screening Z12.11 and BMI 23.0-23.9, adult Z68.23 Assessments Encounter Date Diagnosis (ICD Code) Assessment Notes Treatment Notes Treatment Clinical Notes Section Notes 12/22/2024 Cough (ICD-10 - R05.9) 12/22/2024 Fever blister (ICD-10 - B00.1) 12/22/2024 Osteoporosis screening (ICD-10 - Z13.820) 12/22/2024 Colon cancer screening (ICD-10 - Z12.11) 12/22/2024 BMI 23.0-23.9, adult (ICD-10 - Z68.23) Plan Of Treatment Medication Medication Name Sig Start Date Stop Date Notes valACYclovir HCl 1 GM 1 tablet Orally tw ice a day for 7 days 12/22/2024 Zithromax Z-Isael 250 MG as directed Orally daily for 5 days 12/22/2024 dexAMETHasone 2 MG 1 tablet Orally twic e a day for 5 days 12/22/2024 Pending Test Test Name Order Date DEXA Hip and Spine 12/22/2024 Cologuard 12/22/2024 Next Appt Details Follow Up: via phone to repo rt progress, Reason: Provider Name:Roshan Antonio katie, 01/05/2025 09:45:00 AM, [address], [address], [place], [phone], Provider Name:Roshan Antonio katie, 07/30/2025 09:00:00 AM, [address], [address], [place], [phone], Progress Notes * SHERRELL SEGURAOB:1950 ( 74 yo F)Acc No.[id number]:12/22/2024 Progress Notes Patient: NATALIYA WILKERSON Provider: Gilbert Mcgee M.D. :1950 A ge:74 Y S ex:Female Date:12/22/2024 Address:[address] [place] [address] [id number] Subjective: * Chief Complaints: * 1 . Coughing and heaviness in chest. * HPI: E NT/respiratory: 74 year old female presents with c/o cough P t was seen here on 12/12 for c/o cough for 23 days and was given antibiotics which she sts helped, but sts this is now day 2 of her cough coming back. c/o chest congestion P t sts that when she lays back she has a heavy feeling in her chest. * ROS: D ERMATOLOGY: no R dunia. n o H courtney. G ASTROENTEROLOGY: no N ausea. n o V omiting. U ROLOGY: no D ifficulty urinating. n o B lood in urine. 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 * Surgical History: B TL , D&C , LT Meiniscus Repair 08/2019, Lumbar fusion L4-L5 2021. * Hospitalization/Major Diagno stic Procedure: C ut Finger- [facility] ER 12/21/2012. * Family History: F ather: 75 yrs, heart,cancer. M other: 74 yrs, lung cancer. 2 son(s) , 1 daughter(s) - healthy. . * Social History: C URRENT TOBACCO USE S moking Status: Patient does NOT smoke. C affeine: yes, frequency: 3 cups per day. Home smoke detector use: yes. Marital Status: . 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 Past smoking status: no. Alcohol: No. [...] TAKE ONE TABLET BY MOUTH EVERY DAY - TAKE WITH FOOD- , Taking Alendronate Sodium 70 mg Tablet TAKE ONE TABLET BY MOUTH ONCE WEEKLY (take with FULL GLASS OF water IN THE MORNING BEFORE eating AND remain upright FOR 30 MINUTES AFTER) , Taking Levothyroxine Sodium 50 mcg Tablet TAKE ONE TABLET BY MOUTH EVERY DAY , Taking Mupirocin 2 % Ointment 1 application Externally Twice a day , Discontinued Fluticasone Propionate 50 MCG/ACT Suspension 1 spray in each nostril Nasally Twice a day , Discontinued Cefdinir 300 MG Capsule 1 cap(s) Orally Two times a day , Discontinued Promethazine-DM 6.25-15 MG/5ML Syrup 5 mL as needed Orally , Discontinued Benzonatate 200 MG Capsule 1 capsule as needed Orally , Discontinued Albuterol Sulfate HFA 108 (90 Base) MCG/ACT Aerosol Solution 1 puff Inhalation every 4 hrs, prn , Discontinued dexAMETHasone 4 MG Tablet 1 tablet Orally Two times a day , Medication List reviewed and reconciled with the patient * Allergies: N .K.D.A. Objective: * Vitals: W t: 132.4, Temp: 97.7, BP: 116/70, HR: 75, Nurse: darinel, Ht: 63, BMI:23.45. * Examination: E NT/Respiratory: General Appearance: N AD. Eyes: P ERRLA, sclera clear. Nose : f ever blister present at the right nares, eschar in place. Oral cavity : e rythema without exudate on pharynx, fever blister on right upper lip. Neck : S hotty, nontender adenopathy. Heart : R RR, normal S1 S2. Lungs: c lear to auscultation bilaterally. Assessment: * Assessment: 1. C ough - R05.9 (Primary) 2 . F ever blister - B00.1 3 .?Osteoporosis screening - Z13.820 4 . C olon cancer screening - Z12.11 ? 5 . B ND 23.0-23.9, adult - Z68.23 Plan: * Treatment: Value Reference Range w bc 8.5 3.5 - 10 * l ym 21.4 15 - 50 * m id 6.5 2 - 15 * g ran 72.1 35 - 80 * r bc 4.02 3.5 - 5.5 * h gb 12.7 11.5 - 16.5 * h ct 38.0 35 - 55 * m cv 94.4 75 - 100 * m ch 31.6 25 - 35 * m chc 33.5 31 - 38 * p lat 437 100 - 400 * Provider reviewed results wh federica patient in office.Tonya Greenberg 12/22/2024 02:56:22 PM EDT > 2.?Fever blister? Start valACYclovir HCl Tablet, 1 GM, 1 tablet, Orally, twice a day, 7 days, 14 Tablet, Refills 0. ?3.?Osteoporosis screening?Imaging: DEXA Hip and Spine* JaxonNgozi zuniga 12/25/2024 04:11 :51 PM EDT >Pre-cert not required, order faxed to [facility] scheduling. 4.?Colon cancer screening?LAB: Cologuard* Brisa Stanton 12/25/2024 05:3 0:11 PM EDT > order faxed * Procedure Codes: G 2211 Complex e/[place], [address] CAPILLARY BLOOD DRAW, 94587 CBC WITH AUTO DIFF, 1036F TOBACCO NON-USER, G8420 BMI<30 AND >=22 CALC & DOCU, G8783 BP SCR PRFRM RCMDD DEFIND SCR INTVL, G8752 MOST RECENT SYSTOLIC BP < 140MM HG, G8754 MOST RECENT DIASTOLIC BP < 90MM HG * Follow Up: v ia phone to report progress * Billing Information: * Visit Code: 79389 Office Visit, Est Pt., Level 4. * Procedure Codes: G2211 Complex e/[place]. [address] CAPILLARY BLOOD DRAW. 06856 CBC WITH AUTO DIFF. 1036F TOBACCO NON-USER. G8420 BMI<30 AND >=22 CALC & DOCU. G8783 BP SCR PRFRM RCMDD DEFIND SCR INTVL. G8752 MOST RECENT SYSTOLIC BP < 140MM HG. G8754 MOST RECENT DIASTOLIC BP < 90MM HG. * Electronic signature of Gloria Mcgee MD on 01/04/2025 at 08:56 AM EDT Sign off status: Pending * Provider: Gilbert Mcgee M.D. Date: 12/22/2024 Generated for Marah arriaga/Briana/eTransmitting on: 01/04/2025 08:56 AM EDT History and Physical Notes * HPI (History of Present Illness) Category Sub-Category Detail Notes Category Not es ENT/respiratory cough Pt was seen here on 12/12 for c/o cough for 23 days and was given antibiotics which she sts helped, but sts this is now day 2 of her cough coming back chest congestion Pt sts that when she lays back she has a heavy feeling in her chest Examination Category Sub-Category Detail Notes Category Not es ENT/Respiratory Oral cavity : erythema without exudate on pharynx, fever blister on right upper lip Neck : Shotty, nontender ad enopathy Heart : RRR, normal S1 S2 Lungs: clear to auscultatio n bilaterally General Appearance: NAD Nose : fever blister presen t at the right nares, eschar in place Eyes: PERRLA, sclera clear
--- NOTE | 2025-01-04 08:56 | XR_ITS ---
FINAL REPORT CLINICAL HISTORY: SCREENING COMPARISON: 03/04/2021 FINDINGS: Using L1-4, the bone mineral density of the spine is 1.100 g/cm2, corresponding to T-score of 0.5. Using the left hip, the bone mineral density of the femoral neck is 0.805 g/cm2, corresponding to a T-score of -0.4. Using the right hip, the bone mineral density of the femoral neck is 0.707 g/cm2, corresponding to a T-score of -1.3. NOTE: T-score: Standard deviation compared with peak bone mass of young adult mean. *Following the recommendations of the International Society of Bone densitometry, classification of hip BMD is based on the lower of two T-scores; total hip or femoral neck. IMPRESSION: Normal bone mineral density of the left hip and lumbar spine. Diminished bone mineral density of the right hip consistent with osteopenia. Reviewed, Interpreted and Dictated by Flako New MD Transcribed by Loni Guzman Authenticated and [facility]
--- OUTSIDE RECORDS SUMMARY | 2025-01-04 08:56 | XMS_ITS | Data Portability ---
Author Organization [facility] Address [address] [place] [address] Care Team Providers Care Med Dir Name Role Phone SHAWN SHAFFER Primary Care Provider [phone] Assessment Encounter Date Assessment Date Assessment LastModified by Organization Details LastModified Time 05/14/2022 05/14/2022 Pt is S/P L4-5 mis TLIF 04/28. Here for staple removal. Incision is well healed. Cassandra were removed. Pt is doing well. Tolerated procedure well [email or web address] Not available 05/14/2022 10:25:48 06/08/2022 06/08/2022 Mrs. Segura is doing well after a L4-5 fusion. Her x-rays look good. I gave her printed copy. We discussed walking is much as possible. I'll see her back in a couple months to update some x-rays of the lumbar spine. [email or web address] Not available 06/08/2022 10:53:24 11/23/2022 11/23/2022 Ms. Segura is a 72-year-old female status post L4-5 MIS TLIF on 04/28/[address] España with good improvement in her pain but feels she continues to walk bent forward. We discussed updating imaging, but she agrees she is not having pain and would not want to undergo further surgery. We will hold off on imaging for now. We did discuss getting a soft lumbar brace to see if this gives her a little support. She will get this [id number] er at the [facility]. She understands to call the office if her symptoms worsen in the future. She is happy with this plan. Follow-up as needed. [email or web address] Not available 11/23/2022 15:22:49 Plan of Treatment Reminders Order Date Submit Date Provider Last Modified By Organization Details Last Modified Time Details Appointments None record ed. Lab None record ed. Referral None record ed. Procedures None record ed. Surgeries None record ed. Imaging None record ed. Medication Orders None record ed. Patient TargetsNo targets recorded. Patient InstructionsNo instructions recorded. Reason for Referral None Reported. Results Created Date Observation Date Name Description Value Unit Range Abnormal Flag Note LastModifiedBy Organization Detail LastModifiedTime 06/08/20 22 06/08/2022 XR, lumbo sacra l spine , 2 or 3 view [place] [facility] [address] [place] [address] [place] [address] Mahamed dennis Name: CHHAYA dennis : [address] Mahamed dennis Orderi ng Provid er: PRAFUL ESPAÑA EXAM DATE: 2021 EXAM: XR LUMBAR AP/LAT CLINIC AL INFORM ATION: Postop erativ e. IMAGES PROVID ED: AP, latera l, and coned- down views of the lumbar spine. COMPAR ALESSIA: None. FINDIN GS AND IMPRES SAMANTHA: Spinal fusion is noted at L4-L5 level with pedicu lar screws and connec ting rods. Surgic al hardwa re is satisf actori ly placed . No eviden ce of loosen ing or infect ion is seen. Other levels are normal . Interp reted By: Teja Saldaña MD Electr onical ly Signed By: Teja Saldaña MD on 2021 10:03 AM [facility] [address] [place], [address], 06/19/2022 05:10:59 09/14/19 23 09/14/2022 XR, lumbo sacra l spine , 2 or 3 view [facility] [place] [facility] [address] [place] [address] [place] [address] Patiyessy dennis Name: CHHAYA dennis : [address] Mah[address] dennis Orderi ng Provid er: PRAFUL ESPAÑA EXAM DATE: 2022 EXAM: XR LUMBAR AP/LAT CLINIC AL INFORM ATION: Back pain. IMAGES PROVID ED: AP, latera l and coned down views of the lumbar spine. COMPAR ALESSIA: 2021 FINDIN GS: Prior L4-5 wafer cleaner ior fixati on and interb carmen fusion . No loosen ing or hardwa re compli cation is noted. There is modera te to severe DDD at the L5-S1 level but also what L1-2. No radiog raphic eviden ce of injury is noted. IMPRES SAMANTHA: 1., Stable uncomp licate d appear ing L4-5 fusion Interp reted By: Aden Alvarado MD Electr onical ly Signed By: Aden Alvarado MD on 023 1:37 PM [facility] [address], [phone], 09/16/2022 04:05:52 Result Notes Documentation Provider Name and Address Organization Details Recorded Time Xr, Lumbosacral Spine, 2 Or 3 View : [address] [address] Patient Name: CHHAYA SEGURA Patient : 1950 Patient Ordering Provider: ORACIO ESPAÑA EXAM DATE: 06/08/2022 EXAM: XR LUMBAR AP/LAT CLINICAL INFORMATION: Postoperative. IMAGES PROVIDED: AP, lateral, and coned-down views of the lumbar spine. COMPARISON: None. FINDINGS AND IMPRESSION: Spinal fusion is noted at L4-L5 level with pedicular screws and connecting rods. Surgical hardware is satisfactorily placed. No evidence of loosening or infection is seen. Other levels are normal. Interpreted By: Prakash Saldaña MD IO ESPAÑA MD [address] [place] [address], [phone], [facility] 06/15/2022 12:31:13 Xr, Lumbosacral Spine, 2 Or 3 View : [address] [address] Patient Name: CHHAYA SEGURA Patient : 1950 Patient Ordering Provider: ORACIO PATRIA EXAM DATE: 09/14/2022 EXAM: XR LUMBAR AP/LAT CLINICAL INFORMATION: Back pain. IMAGES PROVIDED: AP, lateral and coned down views of the lumbar spine. COMPARISON: 06/08/2022 FINDINGS: Prior L4-5 posterior fixation and interbody fusion. No loosening or hardware complication is noted. There is moderate to severe DDD at the L5-S1 level but also what L1-2. No radiographic evidence of injury is noted. IMPRESSION: 1., Stable uncomplicated appearing L4-5 fusion Interpreted By: Aden Alvarado MD IO ESPAÑA MD [address] [place] [address], [phone], [facility] 09/14/2022 16:00:52 Problems Name Problem SNOMED Code Status Onset Date Resolution Date Notes Provider Name and Address Organization Details Recorded Time History of lumbar fusion [id number] Active 2022 CHARLI CRENSHAW PA-C [address] [place] [address], [phone], [facility] 16:03:58 Problem Notes None recorded. Procedures Surgical History Date Name Laterality Status Provider Name and Address Organization Details Recorded Time 03/18/20 22 Injection(s), Intra-Articular Facet completed ZULLY PIZANO MD [address] [place] [address], [phone], [facility] 03/18/2022 13:36:02 02/27/20 22 Injection, Interlaminar Epidural Steroid completed ZULLY PIZANO MD [address] [place] [address], [phone], [facility] 02/26/2022 14:03:08 Knee arthroscopy/surg lei completed Eda Khalil [facility] 01/29/2022 09:19:40 Imaging Results None recorded. Procedure Notes None recorded. Medical Equipment None Reported. Allergies No known drug allergies Medications Name Sig Start Date Stop Date Status Note LastModified by Organization Details LastModified Time atorvastati n 20 mg tablet TAKE ONE TABLET BY MOUTH EVERY DAY AT BEDTIME active Not Available Not Available No t Available meloxicam 15 mg tablet TAKE ONE TABLET BY MOUTH EVERY DAY --TAKE WITH FOOD-- active Not Available Not Available No t Available alendronate 70 mg tablet TAKE ONE TABLET BY MOUTH ONCE A WEEK (TAKE FIRST THING IN THE MORNING BEFORE EATING OR OTHER MEDICATIO NS WITH A FULL GLASS OF WATER AND REMAIN UPRIGHT FOR 30 MINUTES) active Not Available Not Available No t Available levothyroxi ne 50 mcg tablet TAKE ONE TABLET BY MOUTH EVERY DAY active Not Available Not Available No t Available methylpredn isolone 4 mg tablets in a dose pack TAKE ACCORDING TO PACKAGE INSTRUCTI ONS --TAKE WITH FOOD-- -- FINISH ALL MEDICINE -- 04/02 completed Not Available Not Available Not Available cyclobenzap rine 5 mg tablet TAKE ONE TABLET BY MOUTH THREE TIMES DAILY NEEDED MAY CAUSE DROWSINES S 04/02 completed Not Available Not Available Not Available Vitals Date Recorded Body height Body mass index (BMI) Body weight Systolic blood pressure Diastolic blood pressure Provider Name and Address Organization Details Last Updated DateTime 09/14/2022 157.48 cm 24.1 kg/m2 22255.19 g 132 mm[Hg] 82 mm[Hg] Eda Khalil [facility] 3 11:39:12 Date Recorded Body height Body mass index (BMI) Body weight Systolic blood pressure Diastolic blood pressure Provider Name and Address Organization Details Last Updated DateTime 11/23/2022 157.48 cm 24.1 kg/m2 12628.19 g 120 mm[Hg] 82 mm[Hg] [facility] 3 15:10:37 Date Recorded Body height Body mass index (BMI) Body weight Systolic blood pressure Diastolic blood pressure Provider Name and Address Organization Details Last Updated DateTime 06/08/2022 157.48 cm 24.1 kg/m2 64531.19 g 132 mm[Hg] 82 mm[Hg] [facility] 2 10:26:13 Social History Question Answer Notes LastModified by Organizat ion Details LastModified Time Tobacco Smoking Status Never Smoker Eda Khalil [facility] 01/29/2022 09:19:29 What Was The Date Of Your Most Recent Tobacco Screening? 03/09/2022 [email or web address] Information not available 03/09/2022 Sex: Female Functional Status None recorded. Mental Status None recorded. Family History Relationship Description Onset Age of this Age Resolved Age Notes LastModified by Organization Details LastModified Time Unspecified Relation Malignant neoplastic disease [email or web address] Not available 01/29 09:18:51 Unspecified Relation Myocardial infarction [email or web address] Not available 01/16 09:19:23 Medical History Condition Response Hypothyroidism Y Arthritis Y High Cholesterol Y Osteoporosis/Osteopenia Y Gynecological HistoryNo gynecological history recorded. Obstetrics History GPAL:G 0 P 0 0 0 0 Past Encounters Encounter ID Performer Location Encounter Start Date Encounter Closed Date Diagnosis/Indication Diagnosis SNOMED-CT Code Diagnosis ICD10 Code Diagnosis Note [id number] ORACIO ESPAÑA MD [facility] [address] [place] [address] 01/29/2022 08:51:43 01/29/2022 16:55:01 Lumbar spondylolisthesis 1186032842 25624 M43.16 Time spent reviewing images, discussing the diagnosis and coordinati ng care: 30min [id number] ZULLY PIZANO MD [facility] [address] [place] [address], [address] [place] [address] 02/26/2022 13:55:45 03/02/2022 14:47:08 Lumbar spondylolisthesis 8438961227 41487 M43.16 Degenerati on of lumbar intervertebral disc 99543326 M51.36 Lumbar spondylosis 40910 0009 M47.816 [id number] ZULLY PIZANO MD [facility] [address] [place] [address] 03/09/2022 14:54:18 03/10/2022 07:47:15 Lumbar spondylolisthesis 8958462163 04856 M43.16 Degenerati on of lumbar intervertebral disc 20350272 M51.36 Lumbar spondylosis 15137 0009 M47.816 [id number] ZULLY PIZANO MD [facility] [address] [place] [address], [address] [place] [address] 03/18/2022 11:32:26 03/20/2022 11:45:10 Lumbar spondylosis 628823405 M47.816 [id number] JCARLOS REYNOSO PA-C [facility] [address] [place] [address] 04/02/2022 10:17:37 04/06/2022 15:07:09 Lumbar spondylolisthesis [id number] 65828 M43.16 [id number] ORACIO ESPAÑA MD [facility] [address] [place] [address] 05/14/2022 09:52:17 05/14/2022 10:26:33 [id number] ORACIO ESPAÑA MD SURGERY SCHEDULE [address] [place] [address] 05/15/2022 08:26:13 05/15/2022 09:25:50 [id number] ORACIO ESPAÑA MD [facility] [address] [place] [address] 06/08/2022 10:01:38 06/08/2022 12:05:03 Postoperative care [id number] Z48.89 [id number] CHARLI CRENSHAW PA-C [facility] [address] [place] [address] 09/14/2022 10:43:22 09/15/2022 04:14:47 History of lumbar fusion [id number] 9106 Z98.1 71-year-ol d female with history of an L4-[address] España on April 28, 2022. I reviewed the x-rays show stable placement of the hardware without evidence of loosening. I have given her a copy of these. We will relax postoperat maikol restrictio ns. Reassured her it may take a full year to completely heal from the surgery but she should continue to see improvemen t with more time. I will give her a physical therapy referral to work on core strengthen ing. We will have the patient follow-up in about 2 or 3 months. If she still having significan t symptoms at that time, consider updating advanced imaging [id number] JCARLOS REYNOSO PA-C [facility] [address] [place] [address] 11/23/2022 14:53:33 11/24/2022 04:05:43 Lumbar spondylosis 140594079 M47.896 Health Concerns Section Related Observation LastModified by Organization Detai ls LastModified Time None Recorded Concern Status LastModified by Organization Details LastModified Time None Recorded Advance Directives Directive None Recorded Payers Insurance Date Sequence Insurance Name Policy Number Policy Lo Covered Member ID Lo Member ID Guarantor Name 11/20/2022 2 [employer] SU[employer]LEMENTAL - [employer] (MEDICARE SUPPLEMENT) Chhaya Segura [id number] Chhaya Segura 11/20/2022 1 [place] Chhaya Segura [id number] Chhaya Segura Notes Date Note Type Note Provider Name and Address Organization Details Recorded Time 06/08/2022 text/html Mrs. Segura is do ing well after an L4-5 fusion. His was a minimally invasive TLIF performed on April 28, 2022. She denies any severe nerve pain. She has some incisional pain which is tolerable. She presents today for her first postoperative visit with x-rays. ORACIO ESPAÑA MD [facility] [place], [address], [facility] 06/08/2022 10:53:37 09/14/2022 text/html 71-year-old fema le status post L4-[address] España April 28, 2022. Patient states that her severe preoperative symptoms do seem better. She still having about 4 out of 10 lower back pain that is worse with standing and walking. She is still having some difficulty standing long enough to cook a meal before having to sit down and is not able to walk around [place] yet without having to bend over due to back pain. She had x-rays prior to this appointment. She has not had therapy postoperatively. CHARLI CRENSHAW PA-C [address] [place] [address], [phone], [facility] 09/14/2022 16:04:53 11/23/2022 text/html Ms. Braun is s/p L4-5 MIS TLIF on 04/28/[address] España. Overall she is doing well with out significant pain. Her biggest complaint is that she walks bent forward at the waist. At her last visit we referred her to physical therapy. She did not find therapy overly helpful but she has noticed she can stand for for longer while she is cooking. No longer she stands or walks she starts feeling more fatigued in her back. She does not describe it as verito pain. JCARLOS REYNOSO PA-C [address] [place], [address], [facility] 11/23/2022 15:23:09 OBGyn Episode No OBEpisode recorded.
--- OUTSIDE RECORDS SUMMARY | 2025-01-04 08:56 | XMS_ITS | Clinical Summary ---
Author Organization Healthcare Address [address] [place] [address] Care Team Providers Care Teletype Clerk Name Role Phone Blaine Garnica MD Primary Care Provider [phone] Immunizations Immunization Administration Dates Next Due Influenza, seasonal, injectable 05/19/2014 Social History Tobacco Use Types Packs/Day Years Used Date Smoking Tobacco: Never Comments Unknown Sex and Gender Information Value Date Recorded Sex Assigned at Not on file Legal Sex Female 6:54 PM EDT Gender Identity Not on file Sexual Orientation Not on file Last Filed Vital Signs Vital Sign Reading Time Taken Comments Blood Pressure - - Pulse - - Temperature - - Respiratory Rate - - Oxygen Saturation - - Inhaled Oxygen Concentration - - Weight 59 kg (130 lb 0.1 oz) 11/07/2014 9:50 AM EDT Height 160 cm (5' 3 ) 11/07/2014 9:50 AM EDT Body Mass Index 23.03 11/07/2014 9:50 AM EDT Plan of Treatment Not on file Care Teams Teletype Clerk Relationship Specialty Start Date End Date Blaine Garnica MD [address] [place] [address] [place] [address] PCP - General 11/29/20
--- OUTSIDE RECORDS SUMMARY | 2025-01-04 08:56 | XMS_ITS ---
Author Organization Unknown TREATMENT PLAN Planned Care Start Date Provider Encounter for Check-up [id number] [facility]
--- OUTSIDE RECORDS SUMMARY | 2025-01-04 08:56 | XMS_ITS | Referral Summary ---
Author Organization [employer] Address [address] [address] Care Team Providers Care Ward Assistant Name Role Phone Roshan Mcgee MD Primary Care Provider [phone] Social History Tobacco Use Types Packs/Day Years Used Date Smoking Tobacco: Never Assessed Interpersonal Safety Answer Date Record ed Family or friends hurt you Not on file 08/07 Family or friends insult you Not on file Family or friends threaten you Not on file 0 08/07/2023 Family or friends scream or curse at you Not on file 08/07/2023 Housing Stability Answer Date Recorded Living situation today Not on file Living situation problems Not on file 2023 Family and Community Support Answer Mick e Recorded Help with Day to Day Activities Not on file 08/07/2023 Feeling Lonely or Isolated Not on file 08/07 Educational Attainment Answer Date Vinny rded Speak language other than Chadian at home Not on file 08/07/2023 Want help with school or training Not on file 08/07/2023 Depression Answer Date Recorded PHQ-2 Risk Not on file 08/07/2023 Disabilities Answer Date Recorded Difficulty concentrating Not on file 024 Difficulty doing errands alone Not on file 0 08/07/2023 Substance Use Answer Date Recorded Used prescription meds for non-medical reasons N ot on file 08/07/2023 Used illegal drugs past 12 months Not on file 08/07/2023 Comments Unknown Sex and Gender Information Value Date Recorded Sex Assigned at Not on file Legal Sex Female 2:08 PM CDT Gender Identity Not on file Sexual Orientation Not on file Plan of Treatment Not on file Medical Devices Implanted Type Area Superintendent Building Device Identifier Shelf Expiration Date Model / Serial / Lot Bone Matrx Vivigen Prefilled Merged With [id number] - [id number] Implanted:Qty : 1 on 04/28/2022 by Rajiv Velasquez MD at [facility] IMPLANTS N/A: Back LIFENET:LIFENET TRANSPLANT SRV 04/02/2023 [id number] / [id number] / Cage T/Plif 10mm [id number] - [id number] Implanted:Qty : 1 on 04/28/2022 by Rajiv Velasquez MD at [facility] IMPLANTS N/A: Back J &J:DEPUY:DEPUY SPINE 10/16/2025 [id number] / / [id number] Imp Vpr Prm Cfxfen Xtab 6x45mm [id number] - [id number] Implanted:Qty : 4 on 04/28/2022 by Rajiv Velasquez MD at [facility] IMPLANTS N/A: Back J &J:DEPUY:DEPUY SPINE [id number] / [id number] / Mis Shamir Ply Scrw Set Ti - Implanted:Qty : 4 on 04/28/2022 by Rajiv Velasquez MD at [facility] IMPLANTS N/A: Back J &J:DEPUY:DEPUY SPINE / / Ariel Spine Viper [id number] - Implanted:Qty : 2 on 04/28/2022 by Rajiv Velasquez MD at [facility] IMPLANTS N/A: Back J &J:DEPUY:DEPUY SPINE / / Insurance [place]IC[place] [address] [place] [address] Care Teams Ward Assistant Relationship Specialty Start Date End Date Roshan Mcgee MD [address] [facility] [address] [place] [address] PCP - General Family Medicine 07/19/21
--- OUTSIDE RECORDS SUMMARY | 2025-01-04 08:56 | XMS_ITS | Patient Health Record ---
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 Name Role Phone Roshan Mcgee Primary Care Provider Quynh Ortega Unavailable [phone] Allergies No Known Allergies Results Component Value Reference Range Notes TEN-Upper Respiratory PCR Reviewed date:12/26/2024 11:27:07 AM Interpretation:Negative Performing Lab: Notes/Report: Negative CBC Fingerstick (in house) Reviewed date:12/24/2024 06:17:46 [...] - 38 plat 437 100 - 400 CBC Fingerstick (in house) Reviewed date:11/30/2024 03:46:14 [...] - 38 plat 271 100 - 400 CBC Fingerstick (in house) Reviewed date:11/27/2024 03:40:43 PM Interpretation: Performing Lab: Notes/Report: wbc 8.0 3.5 - 10 lym 17.9 15 - 50 mid 5,1 2 - 15 gran 77.0 35 - 80 rbc 4.15 3.5 - 5.5 hgb 12.8 11.5 - 16.5 hct 38.4 35 - 55 mcv 92.4 75 - 100 mch 30.9 25 - 35 mchc 33.5 31 - 38 plat 271 100 - 400 H-T4 free Reviewed date:08/04/2024 11:59:25 AM Interpretation: Normal Performing Lab: Notes/Report: T4F 0.91 0.78-2.19 ng/dl H-CMP Reviewed date:08/04/2024 11:59:25 AM Interpretation:bun 23, Ca 10.4, ast 51, a/g 2.3 Performing Lab: Notes/Report: NA 138 136-145 mmol/L K 4.5 3.5-5.1 mmoL/L CL 101 98-107 mmol/L CO2 29 22.0-30.0 mmol/L GAP 12.5 5-15 mEq/L BUN 23 7-17 mg/dl CREATT 0.70 0.52-1.04 mg/dl GFRAA 99 >60 ML/MIN EGFR 82 >60 ml/min GLU 94 74-100 mg/dl CA 10.4 8.4-10.2 mg/dl BILIT 0.4 0.2-1.3 mg/dl AST 51 14-36 U/L ALT 58 12-78 U/L TP 6.6 6.3-8.2 g/dl ALB 4.6 3.5-5.0 g/dl GLOB 2.0 1.3-3.2 g/dL AGRATIO 2.3 1.1-1.8 ALP 89 38-126 U/L H-Lipid Panel Reviewed date:08/04/2024 11:59:25 AM Interpretation:chol 214, dldl 136, chol/hdl 4.3 Performing Lab: Notes/Report: Patient Fasting? Y TRIG 105 30-150 mg/dl CHOL 214 140-200 mg/dl DLDL 136.18 100-129 mg/dL VLDL 21 0-40 mg/dL HDL 50 40-60 mg/dl CHLHDL 4.3 1-3.5 H-VITAMIN D Reviewed date:08/04/2024 11:59:25 AM Interpretation:45.2 Performing Lab: Notes/Report: TVITD 45.2 30-100 ng/mL Deficient <20 ng/mL Insufficient 20-30 ng/mL Sufficient 30-100 ng/mL Potential Toxicity >100 ng/mL H-CBC Reviewed date:08/04/2024 11:59:25 AM Interpretation: Normal Performing Lab: Notes/Report: WBC 5.1 4.8-10.8 K/mm3 RBC 4.22 4.20-5.40 M/mm3 HGB 13.1 12.2-16.2 g/dL HCT 38.9 37.0-47.0 % MCV 92.2 81-99 fl MCH 31.0 27.0-31.2 pg MCHC 33.7 31.8-35.4 g/dL RDW 12.3 11.5-17.5 % PLT 307 142-424 K/mm3 MPV 9.4 7.4-10.4 fl NE% 67.7 37.0-80.0 % LY% 20.8 10-50 % MO% 7.8 1.7-9.3 % EO% 2.7 0.1-12.0 % BA% 0.6 0.1-2.0 % NE# 3.5 1.8-7.8 K/mm3 LY# 1.1 0.7-4.5 K/mm3 MO# 0.4 0.1-1.0 K/mm3 EO# 0.1 0.0-0.4 K/mm3 BA# 0.0 0-0.2 K/mm3 H-TSH Reviewed date:08/04/2024 11:59:25 AM Interpretation: Normal Performing Lab: Notes/Report: TSH 2.20 0.465-4.68 uIU/mL CXR Reviewed date:12/08/2024 01:27:48 PM Interpretation:Negative Performing Lab: Notes/Report: Negative CBC Fingerstick (in house) Reviewed date:12/12/2024 02:37:12 [...] - 38 plat 405 100 - 400 Reason For Referral No Information Medications Medication SIG (Take, Route, Frequency, Duration) Notes Start Date End Date Status Zithromax Z-Isael 250 MG as directed Orall y daily for 5 days 12/22/2024 Active Mupirocin 2 % 1 application Sanding Machine Buffer ally Twice a day 12/12/2024 Active Levothyroxine Sodium 50 mcg TAKE ONE TAB LET BY MOUTH EVERY DAY for 90 Active Meloxicam 15 mg TAKE ONE TABLET BY M OUTH EVERY DAY - TAKE WITH FOOD- for 90 Active Atorvastatin Calcium 20 mg [...] a day for 7 days 12/22/2024 Active dexAMETHasone 2 MG 1 tablet Orally twic e a day for 5 days 12/22/2024 Active Alendronate Sodium 70 mg take 1 tablet b efore first meal of the day, remain upright for 30 minutes orally once a week for 90 days Active Immunizations Vaccine Route Administration Date Status Comme nts COVID 19 Moderna Unknown 07/24/2020 Administered COVID 19 Moderna Unknown 08/21/2020 Administered COVID 19 Moderna Unknown 04/09/2021 Administered Fluzone High Dose (65yr and older) IM Intramuscular 04/05/2020 Administered Fluzone High Dose (65yr and older) IM Intramuscular 03/17/2024 Administered Fluzone Quad (6months&older) Unknown 05/05/2021 Administered Prevnar (PCV13) IM Intramuscular 12/05/2020 Administered Prevnar (PCV20) IM Intramuscular 07/31/2024 Administered Tetanus Tdap-Adacel (over 7yrs) IM Intramuscular 12/09/2007 Administered Problems Problem Type SNOMED Code ICD Code Onset Dates Problem Status W/U Status Risk Notes Problem 854050142 History of anemi a (Z86.2) Active confirmed Problem Degeneration of lumbar intervertebral disc (38276769) Degenerative disc disease, lumbar (M51.36) Active confirmed Problem Fever blister (9949442) Fever blister (B00.1) Active confirmed Problem 353955146 Lumbago with sci atica, right side (M54.41) Active confirmed Problem 498910258 Lumbago with sci atica, left side (M54.42) Active confirmed Problem 187335444 Acquired hypothyroidism (E03.9) Active confirmed Problem 329776259 Esophageal dysmo tility (K22.4) Active confirmed Problem 379479668 Pure hypercholesterolemia (E78.00) Active confirmed Problem 823249213 Osteopenia, unspecified location (M85.80) Active confirmed Problem 9301269709156860 Arthritis of le ft knee (M17.12) Active confirmed Vital Signs Heart Rate 75 /min 12/22/2024 Blood pressure diastolic 70 mm Hg 12/22/2024 Height 63 in 12/22/2024 Blood pressure systolic 116 mm Hg 12/22/2024 Weight 132.4 lbs 12/22/2024 BMI 23.45 kg/m2 12/22/2024 Encounters Encounter Location Date Provider Diagnosis [facility] [address] [place], [place] [id number] 03/17/2024 Roshan [place] Encounter for immuni zation Z23 [facility] [address] [place], [place] [id number] 07/31/2024 Roshan [place] Acquired hypothyroid ism E03.9 ; Pure hypercholesterolemia E78.00 ; Arthritis of left knee M17.12 ; Esophageal dysmotility K22.4 ; History of anemia Z86.2 ; Osteopenia, unspecified location M85.80 and Encounter for immunization Z23 [facility] [address] [place], [place] [id number] 11/27/2024 Roshan [place] Acute URI J06.9 ; Ac quired hypothyroidism E03.9 and BMI 24.0-24.9, adult Z68.24 [facility] [address] [place], [place] [id number] 11/30/2024 Quynh [place] Acute URI J06.9 ; Br onchitis J40 and BMI 23.0-23.9, adult Z68.23 [facility] [address] [place], [place] [id number] 12/12/2024 Roshan [place] Persistent cough R05 .3 ; Sore in nose J34.89 and BMI 24.0-24.9, adult Z68.24 [facility] [address] [place], [place] [id number] 12/22/2024 Roshan [place] Cough R05.9 ; Fever blister B00.1 ; Osteoporosis screening Z13.820 ; Colon cancer screening Z12.11 and BMI 23.0-23.9, adult Z68.23 [facility] [address] [place], [place] [id number] 08/04/2024 Roshan [place] [facility] [address] [place], [place] [id number] 12/17/2024 Roshan [place] Assessments Encounter Date Diagnosis (ICD Code) Assessment Notes Treatment Notes Treatment Clinical Notes Section Notes 03/17/2024 Encounter for immunization (ICD-10 - Z23) 07/31/2024 Acquired hypothyroid ism (ICD-10 - E03.9) 07/31/2024 Pure hypercholesterolemia (ICD-10 - E78.00) 11/27/2024 Acquired hypothyroid ism (ICD-10 - E03.9) 11/27/2024 Acute URI (ICD-10 - J06.9) 11/30/2024 Bronchitis (ICD-10 - J40) 11/30/2024 Acute URI (ICD-10 - J06.9) 12/12/2024 Sore in nose (ICD-10 - J34.89) 12/12/2024 Persistent cough (IC D-10 - R05.3) 12/22/2024 Fever blister (ICD-1 0 - B00.1) 12/22/2024 Cough (ICD-10 - R05.9) 12/22/2024 Osteoporosis screeni ng (ICD-10 - Z13.820) 12/12/2024 BMI 24.0-24.9, adult (ICD-10 - Z68.24) 11/30/2024 BMI 23.0-23.9, adult (ICD-10 - Z68.23) 11/27/2024 BMI 24.0-24.9, adult (ICD-10 - Z68.24) 07/31/2024 Arthritis of left kn ee (ICD-10 - M17.12) 07/31/2024 Esophageal dysmotili ty (ICD-10 - K22.4) 12/22/2024 Colon cancer screeni ng (ICD-10 - Z12.11) 12/22/2024 BMI 23.0-23.9, adult (ICD-10 - Z68.23) 07/31/2024 History of anemia (ICD-10 - Z86.2) 07/31/2024 Osteopenia, unspecif ied location (ICD-10 - M85.80) 07/31/2024 Encounter for immunization (ICD-10 - Z23) Plan Of Treatment Pending Test Test Name Order Date DEXA Hip and Spine 12/22/2024 Cologuard 12/22/2024 Next Appt Details Provider Name:Roshan wilson, 01/05/2025 09:45:00 AM, [address] [facility] [address] [facility], [address], [place], [place], [id number], Provider Name:Roshan wilson, 07/30/2025 09:00:00 AM, [address] [facility] [address] [facility], [address], [place], [place], [id number], Insurance Providers Payer Name Payer Address Payer Phone Subscriber Number Group Number Insured Name Patient Relationship to Insured Coverage Start Date Coverage End Date MEDICARE PART B [address] [address] [place] [id number] [phone] [id number] NATALIYA SEGURA Self - patient is the insured [employer] INS[employer]ANCE [address] [place] [address] [id number] NATALIYA SEGURA Self - patient is the insured Medical (General) History Medical History History ICD Code Hyperlipidemia Arthritis 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 Partida Hypothyroidism Esophageal spasms Surgical History Surgery Date(Month/Year) BTL D&C LT Meiniscus Repair 08/2019 Lumbar fusion L4-L5 2021 Hospitalization History Reason Date(Month/Year) Cut Finger- [facility] 12/21/2012
--- OUTSIDE RECORDS SUMMARY | 2025-01-04 08:56 | XMS_ITS | Clinical Summary ---
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 Name Role Phone Roshan Mcgee MD Primary Care Provider [phone] Social History Tobacco Use Types Packs/Day Years [...] Date Vinny rded Speak language other than Gabonese at home Not on file 08/07/2023 Want [...] Orientation Not on file Plan of Treatment Health Maintenance Due Date Last Done Comments CT Colonography 1949 Colonoscopy 1949 Colorectal Cancer Screening 1949 DXA SCAN 1949 FOBT/FIT 1949 Fit-DNA (Cologuard) 1949 Sigmoidoscopy 1949 Depression Screening (12+) 1961 Tobacco Cessation Counseling and Screening (12+) 1961 Hepatitis C Screening 09/30/1967 DTAP/TDAP/TD VACCINES (1 - Tdap) 1968 Shingles Vaccine (Zoster) (1 of 2) 09/30/1999 Medicare Initial AWV [id number] 09/18/2015 Pneumococcal 50+ years (2 of 2 - PPSV23) 12/05/2021 12/05/2020 COVID-19 VACCINE (5 - 2023-2 5 season) 2024 04/01/2022, 04/09/2021, 08/21/2020, Additional history exists Falls Risk Screening 07/19/2024 Respiratory Syncytial Virus (RSV) Adult or (1 - 1-dose 75+ series) 2024 Influenza Vaccine (Season Ended) 2025 04/22/2022, 05/05/2021, 04/05/2020, Additional history exists Medical Devices Implanted Type Area Desktop Architect Device Identifier Shelf Expiration Date Model / Serial / Lot Bone Matrx Vivigen Prefilled [id number] - [id number] Implanted:Qty : 1 on 04/28/2022 by Rajiv Velasquez MD at [facility] ([place], [place]) IMPLANTS N/A: Back LIFENET:LIFENET TRANSPLANT SRV 04/02/2023 -[id number] / [id number] / Cage T/Plif 10mm [id number] - [id number] Implanted:Qty : 1 on 04/28/2022 by Rajiv Velasquez MD at [facility] ([place], [place]) IMPLANTS N/A: Back J &J:DEPUY:DEPUY SPINE 10/16/2025 [id number] / / [id number] Imp Vpr Prm Cfxfen Xtab 6x45mm [id number] - [id number] Implanted:Qty : 4 on 04/28/2022 by Rajiv Velasquez MD at [facility] ([place], [place]) IMPLANTS N/A: Back J &J:DEPUY:DEPUY SPINE [id number] / [id number] / Mis Shamir Ply Scrw Set Ti - [id number] Implanted:Qty : 4 on 04/28/2022 by Rajiv Velasquez MD at [facility] ([place], [place]) IMPLANTS N/A: Back J &J:DEPUY:DEPUY SPINE / / Ariel Spine Viper [id number] - [id number] Implanted:Qty : 2 on 04/28/2022 by Rajiv Velasquez MD at [facility] ([place], [place]) IMPLANTS N/A: Back J &J:DEPUY:DEPUY SPINE / / Insurance MEDICARE PART [place] [address] Care Teams [employer] Relationship Specialty Start Date End Date Roshan Mcgee MD [address] [facility] [address] [place] [phone] PCP - General Family Medicine 07/19/21
== END 2025-01-04 23:59 | disposition home or self-care (01) ==
LOC: RAD 08:53
PROVIDERS: PCP Family Medicine; Visit Provider Family Medicine
DX: M85.851 Other specified disorders of bone density and structure, right thigh (principal); M81.0 Age-related osteoporosis without current pathological fracture
CPT/HCPCS: 77080